=== PATIENT | male | born 1940 | race Caucasian/White ===

== ENCOUNTER 2017-03-03 11:41 | Inpatient (IN) | payer OTHER ==
[~2017-03-03] VITALS: Ht 188 cm; Wt 97.5 kg
[~2017-03-03 11:41] MED LIST: AMLODIPINE BESYL5 M1 PO; ANTACID ANTI-G355 ML PO; ASPIRIN EC325 M2 PO; DEPAKOTE250 M1 PO; DEPAKOTE500 M1 PO; DIVALPROEX SOD250 M3 PO; DIVALPROEX SOD500 M2 PO; FLUTICASONE PRO16 GM NASB; FUROSEMIDE40 M1 PO; LASIX20 M1 PO; OMEPRAZOLE40 M1 PO; PAIN RELIEF325 MG PO; SERTRALINE HCL100 MG PO; SERTRALINE HCL25 MG PO; SERTRALINE HCL50 MG PO; VITAMIN B-121000 MC3 PO
--- NOTE | 2017-03-03 11:49 | ED GENERAL ADULT ---
See Addendum History of Present Illness General Chief Complaint: Altered Mental Status Stated Complaint: CONFUSION Source: family, old records, EMS Exam Limitations: confusion Vital Signs & Intake/Output Vital Signs & Intake/Output Vital Signs Date Time Temp Pulse Resp B/P B/P Pulse O2 O2 Flow FiO2 Mean Ox Delivery Rate 03/05 0126 78 142/90 03/04 2211 97.7 64 20 144/100 95 Room Air 03/04 1347 98.2 86 20 140/80 98 Room Air 03/04 1154 Room Air 03/04 1114 Room Air 03/04 1043 74 150/90 03/04 0633 98.2 77 20 150/98 96 Room Air ED Intake and Output 03/05 0000 03/04 1200 Intake Total 2320 800 Output Total Balance 2320 800 Intake, IV 1600 800 Intake, Oral 720 Number 1 Bowel Movements Patient 215 lb Weight Allergies Coded Allergies: No Known Allergies (04/25/16) Reconcile Medications Amlodipine Besylate 5 MG TABLET 1 TAB PO QAM BP (Reported) Aspirin (Ecotrin*) 325 MG TABLET.DR 1 TAB PO DAILY HEART/BLOOD (Reported) Ceftriaxone Sodium (Ceftriaxone) 1 GRAM VIAL 1 GM IM DAILY ANTIBIOTIC, INFECTION (Reported) Cholecalciferol (Vitamin D3) 1,000 UNIT TABLET 1 TAB PO DAILY VITAMIN SUPPORT (Reported) Divalproex Sodium 500 MG TABLET.DR 1,500 MG PO QHS patient does not know the reas (Reported) Divalproex Sodium (Depakote) 250 MG TABLET.DR 1 TAB PO QHS patient does not remeber (Reported) as part of 1750 MG dose Fluticasone Propionate 16 GM SPRAY.SUSP 1 SPRAY NASB DAILY NASAL CONGESTION ( Reported) Furosemide (Lasix) 20 MG TABLET 1 TAB PO DAILY DIURETIC (Reported) Polyethylene Glycol 3350 (Miralax) 17 GRAM POWD.PACK 1 PAC PO DAILY CONSTIPATION (Reported) dissolve in water Sertraline HCl 25 MG TABLET 1 TAB PO DAILY MENTAL HEALTH (Reported) Sertraline HCl 50 MG TABLET 1 TAB PO DAILY MENTAL HEALTH (Reported) Sertraline HCl 100 MG TABLET 1 TAB PO DAILY MENTAL HEALTH (Reported) Triage Nurses Notes Reviewed? yes Onset: Gradual Duration: getting worse Timing: recent history Severity: severe Severity Numbers: 10 HPI: Patient is a 76-year-old male with a past medical history of progressive dementia, hypertension, atrial fibrillation (NOT ON ANTICOAGULATION, CHF, depression, anxiety, hyperlipidemia, autism and GERD in which history is limited due to patient's confusion where EMS brought inpatient from [facility] for concerns of altered mental status worsening confusion and lethargy. Family also is present in which the daughter is power of estate planning attorney who confirms that in the past month since symptoms was placed at [facility] patient has progressively worsen at his a slightly normal daily function. Daughter does state that last week patient was conversing at baseline and ambulating without assistance however in the past week patient's nonambulatory and generalized weak and fatigue and significantly confused. It was noted throat records the patient has a urine culture positive for gram-negative rods patient has received 1 day of intramuscular gram of Rocephin prior to arrival at [facility]. Family staff and EMS state that there is no acute onset of mental status changes or facial droop slurred speech or unilateral weakness (VALENTINO GOMEZ) Past History Travel History Traveled to [facility] past 21 day No Medical History Any Pertinent Medical History? 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 No (VALENTINO GOMEZ) Review of Systems Review of Systems Constitutional: Reports: see HPI, malaise, weakness. Denies: fever. EENTM: Reports: no symptoms. Respiratory: Reports: no symptoms. Cardiovascular: Reports: no symptoms. GI: Reports: no symptoms. Genitourinary: Reports: see HPI. Musculoskeletal: Reports: no symptoms. Skin: Reports: no symptoms. Neurological/Psychological: Reports: no symptoms. Hematologic/Endocrine: Reports: no symptoms. Immunologic/Allergic: Reports: no symptoms. All Other Systems: Reviewed and Negative (VALENTINO GOMEZ) Physical Exam Physical Exam General Appearance: no apparent distress, awake Head: atraumatic Eyes: Bilateral: normal appearance, PERRL, EOMI. Ears, Nose, Throat: hearing grossly normal Neck: normal inspection Respiratory: normal breath sounds, chest non-tender, no respiratory distress Cardiovascular: irregularly irregular Gastrointestinal: normal bowel sounds, soft, non-tender, no organomegaly Extremities: normal inspection, normal capillary refill Skin: intact, normal color Core Measures ACS in differential dx? No CVA/TIA Diagnosis: No NIH Stroke Scale: Total 3 Severe Sepsis Present: No Septic Shock Present: No Bedside Swallow Eval Done: Yes Result of Evaluation: Pass (VALENTINO GOMEZ) Progress Differential Diagnoses I considered the following diagnoses in my evaluation of the patient: [Sepsis, UTI, CVA, electrolyte abnormality, LORRIE, pneumonia,] Plan of Care: Orders Procedure Date/time Status DEPAKOTE LEVEL 03/08 0600 Active CBC WITHOUT DIFFERENTIAL 03/05 06 Active BASIC ELECTROLYTES PLUS BUN&CR 03/05 0600 Active Regular Diet 03/04 L Complete Regular Diet 03/04 D Active SWALLOW EVALUATION 03/04 UNK Active Evaluate Swallowing 03/04 UNK Complete Therapeutic Activities 03/04 UNK Complete PT EVAL LOW COMPLEX 20 MIN 03/04 UNK Complete Patient Safety Monitor 03/04 UNK Complete Nursing Misc 03/04 UNK Active Current Medications Sig/Gwen Start time Last Medication Dose Stop Time Status Admin Sertraline HCl 175 MG DAILY 03/05 1000 AC (Zoloft) Divalproex Sodium 1,750 MG AT BEDTIME 03/04 2345 AC 03/05 (Depakote ER) 0021 Amlodipine Besylate 5 MG QAM 03/04 1000 AC 03/04 (Norvasc) 1043 Aspirin Buffered 325 MG DAILY 03/04 1000 AC 03/04 (Ecotrin) 1043 Ceftriaxone Sodium 1,000 MG DAILY 03/04 1000 AC 03/04 (Rocephin) 1043 Bisacodyl 10 MG DAILY PRN 03/03 1600 AC (Dulcolax Supp) Acetaminophen 1,000 MG Q6P PRN 03/03 1545 AC (Ofirmev) Potassium Chloride 20 MEQ Q10H 03/03 1545 AC 03/04 (KCl 20MEQ in D5W NS 03/05 0744 1604 1000ML) Dextrose/Sodium 1,000 ML Chloride (D5-Normal Saline) Heparin Sodium 5,000 UNIT Q8 03/03 1543 AC 03/04 (Porcine) 2201 Laboratory Tests 03/04/17 0744: Anion Gap 8, Estimated GFR > 60, BUN/Creatinine Ratio 30.0 H, CBC w Diff NO MAN DIFF REQ, RBC 4.63 L, MCV 91.4, MCH 30.9, RDW 13.4, MPV 7.3 L, Gran % 79.1 H, Lymphocytes % 7.5 L, Monocytes % 12.2 H, Eosinophils % 1.2, Basophils % 0 L, Absolute Granulocytes 4.1, Absolute Lymphocytes 0.4 L, Absolute Monocytes 0.6, Absolute Eosinophils 0.1, Absolute Basophils 0, PUBS MCHC 33.8 Due to history of present noticing exam findings patient has consideration of altered mental status most likely due to urine tract infection. Culture does note of gram-negative rods Patient was given IV Rocephin which patient will require IV antibiotics. Patient also requires slow fluid resuscitation No concerns of CVA or TIA at this time patient follows all commands however he is oriented 0 Daughter states that patient is usually alert and oriented and has significantly declined in the past week No acute findings on imaging (MARTINEZ CRUZ,VALENTINO) Diagnostic Imaging: Viewed by Me: Radiology Read, CT Scan. Radiology Impression: no acute abnormality Initial ED EKG: AFIB (82 BPM) Comments: PATIENT: VALENTINO GOSS PRESENT AGE: 76 PATIENT ACCOUNT NO: [id number] : 38 LOCATION: [facility] ORDERING PHYSICIAN: VALENTINO CRUZ SERVICE DATE: 03/03/17-1253 EXAM TYPE: CAT - CT HEAD WO IV CONTRAST EXAMINATION: CT HEAD WITHOUT CONTRAST CLINICAL INFORMATION: Altered mental status. COMPARISON: CT scan of the head 04/25/2016. TECHNIQUE: Contiguous axial imaging was performed from the skull base to vertex without intravenous administration of contrast. DLP: 701.14 mGy-cm FINDINGS: There is no evidence of acute intracranial hemorrhage or territorial infarction. No abnormal mass effect or midline shift is seen. Adames to white matter differentiation is well preserved. There is mild prominence of the CSF in the multilevel cranial fossa on the left anteriorly, but there are vessels running through this fluid, and the findings are unlikely to be consistent with a cyst. The ventricles and sulci are commensurately prominent consistent with mild diffuse volume loss, similar compared to the prior study. There are patchy areas of low attenuation in the periventricular and subcortical white matter, consistent with sequelae of chronic microvascular ischemic disease. Lacunar infarcts are noted in the left basal ganglia and right thalamus, unchanged The osseous structures and soft tissues are normal. The mastoid air cells and visualized portions of the paranasal sinuses are well aerated. IMPRESSION: 1. There are no acute bleeds or territorial infarcts. 2. There are stable changes consistent with diffuse volume loss in the sequelae of chronic microvascular ischemic disease and lacunar infarcts. DICTATED BY: HECTOR MEYER MD PATIENT: VALENTINO GOSS PRESENT AGE: 76 PATIENT ACCOUNT NO: [id number] : 38 LOCATION: [facility] ORDERING PHYSICIAN: VALENTINO CRUZ SERVICE DATE: 03/03/17 EXAM TYPE: RAD - XRY-PORTABLE CHEST XRAY EXAMINATION: XR PORTABLE CHEST CLINICAL INFORMATION: Altered mental status. COMPARISON: Chest 04/25/2016. TECHNIQUE: Portable AP 75 degrees upright view of the chest was obtained. FINDINGS: There is stable mild enlargement of the cardiac silhouette, accentuated by hypoexpansion of the lungs. There is no congestion or focal consolidation. There is probable vascular crowding or minor atelectasis at the left lung base. There are stable mild degenerative changes of the spine. IMPRESSION: Mild left base atelectasis. Otherwise, no acute cardiopulmonary process. DICTATED BY: SASHA PEDRO MD DATE/TIME DICTATED:03/03/171341 MERCHANDISE EXECUTION LEADER:SADI (VALENTINO GOMEZ) Departure Departure Disposition: STILL A PATIENT Condition: Stable Clinical Impression Primary Impression: Altered mental state Secondary Impressions: UTI (urinary tract infection) Referrals: YARED TREVIZO MD (PCP/Family) Departure Forms: Customer Survey General Discharge Information Admission Note Spoke With: ALAYNA SANCHEZ MD Documentation of Exam: Documentation of any treatments & extenuating circumstances including Concerns Regarding Discharge (functional status, medication knowledge or non-compliance, living conditions, etc.) that warrant an admission rather than observation: [ Discussed admission with who agrees with general medicine admission for concerns of altered mental status etiology urine infection which patient requires IV antibiotics, IV fluid resuscitation, dietary consultation, physical therapy consultation, case management consultation and further evaluation and treatment of patient's significant baseline change of mental status.] (VALENTINO GOMEZ) PA/BOAT JOINER Co-Sign Statement Statement: ED Attending supervision documentation- [X] I saw and evaluated the patient. I have also reviewed all the pertinent lab results and diagnostic results. I agree with the findings and the plan of care as documented in the PA's/BOAT JOINER's documentation. [] I have reviewed the ED Record and agree with the PA's/BOAT JOINER's documentation. [] Additions or exceptions (if any) to the PAs/BOAT JOINER's note and plan are summarized below: [] (KIRAN REYNA,STUART Coyle) Critical Care Note Critical Care Note Critical Care Time: non-applicable (VALENTINO GOMEZ)
[2017-03-03] MEDS ORDERED: MIRALAX17 G1 PO (12:03)
[2017-03-03] MEDS ORDERED: VITAMIN D31000 UNI2 PO (12:06)
[2017-03-03] MEDS ORDERED: CEFTRIAXONE1 G1 IM (12:07)
[2017-03-03 12:28] LABS: ABSOLUTE BASOPHIL COUNT 0 /CUMM (0.0-0.2); ABSOLUTE EOSINOPHIL COUNT 0.1 /CUMM (0.0-0.7); ABSOLUTE MONOCYTE COUNT 0.7 /CUMM (0.10-0.60); EOSINOPHIL % 0.8 % (0-5); MEAN CORPUSCULAR HGB CONC 33.8 G/DL (33.0-37.0)
[2017-03-03 12:35] LABS: ABSOLUTE GRANULOCYTE CT 7.3 /CUMM (1.4-6.5); ABSOLUTE LYMPH COUNT 0.5 /CUMM (1.2-3.4); BASOPHIL % 0 % (0.0-2.0); HEMATOCRIT 42.5 % (42-52); MEAN CORPUSCULAR HGB 30.7 PG (27.0-31.0); MEAN CORPUSCULAR VOLUME 90.8 FL (80.0-94.0); MEAN PLATELET VOLUME 7.1 FL (7.4-10.4); PLATELET COUNT 132 /CUMM (130-400); RBC DISTRIBUTION WIDTH 13.5 % (11.5-14.5); RED BLOOD CELL CT 4.68 /CUMM (4.70-6.10)
[2017-03-03 12:40] LABS: WHITE BLOOD CELL COUNT 8.6 /CUMM (4.8-10.8)
[2017-03-03 12:49] LABS: GRANULOCYTE % 85.2 % (42.2-75.2)
--- NOTE | 2017-03-03 13:48 | RADIOLOGY REPORT ---
EXAMINATION: XR PORTABLE CHEST CLINICAL INFORMATION: Altered mental status. COMPARISON: Chest 04/25/2016. TECHNIQUE: Portable AP 75 degrees upright view of the chest was obtained. FINDINGS: There is stable mild enlargement of the cardiac silhouette, accentuated by hypoexpansion of the lungs. There is no congestion or focal consolidation. There is probable vascular crowding or minor atelectasis at the left lung base. There are stable mild degenerative changes of the spine. IMPRESSION: Mild left base atelectasis. Otherwise, no acute cardiopulmonary process.
--- NOTE | 2017-03-03 13:55 | CT SCAN REPORT ---
EXAMINATION: CT HEAD WITHOUT CONTRAST CLINICAL INFORMATION: Altered mental status. COMPARISON: CT scan of the head 04/25/2016. TECHNIQUE: Contiguous axial imaging was performed from the skull base to vertex without intravenous administration of contrast. DLP: 701.14 mGy-cm FINDINGS: There is no evidence of acute intracranial hemorrhage or territorial infarction. No abnormal mass effect or midline shift is seen. Adames to white matter differentiation is well preserved. There is mild prominence of the CSF in the multilevel cranial fossa on the left anteriorly, but there are vessels running through this fluid, and the findings are unlikely to be consistent with a cyst. The ventricles and sulci are commensurately prominent consistent with mild diffuse volume loss, similar compared to the prior study. There are patchy areas of low attenuation in the periventricular and subcortical white matter, consistent with sequelae of chronic microvascular ischemic disease. Lacunar infarcts are noted in the left basal ganglia and right thalamus, unchanged The osseous structures and soft tissues are normal. The mastoid air cells and visualized portions of the paranasal sinuses are well aerated. IMPRESSION: 1. There are no acute bleeds or territorial infarcts. 2. There are stable changes consistent with diffuse volume loss in the sequelae of chronic microvascular ischemic disease and lacunar infarcts.
--- NOTE | 2017-03-03 14:17 | History & Physical ---
ARABELLA REYNA,ROBERTA 03/03/17 1417: General Information and HPI MD Statement: I have seen and personally examined VALENTINO GOSS and documented this H&P. The patient is a 76 year old M who was sent to the ED for abnormal lab results and altered mental status. Source of Information: family, daughter, who is the POA Exam Limitations: clinical condition, dementia History of Present Illness: 76 yo M with past medical condition of dementia, autism, CVA (last one 15 yrs ago), HTN, CHF, afib not on AC due to fall risk, HLD, edema, GRED, depression, anxiety, was sent in by nursing facility for abnormal lab values and altered mental status. According to the patient's family, he was in some rehab facility one month ago when he started having urinary and fecal incontinence, following which he was sent to [facility]. At baseline, his can communicate and can walk with the help of a walker. Family reported that he was probably the facility was unable to give personal care that he required and the family was not informed of his detoriating mental status until the daughter visited him 2 days [place]AM[place]. She noticed that he was only able to recognize family members but was below his baseline mental status, not recognizing food or drinnk, and had "cognitive" changes. Appearantly, patient was tested for infection and was found to have UTI, was given a dose of IM Ceftriaxone. Per family's request due to latered mental status, he was refered to [facility]. Review of systems could not be obtained as there was no one to verify his status in the facility, and the patient was unable to provide history. Allergies/Medications Allergies: Coded Allergies: No Known Allergies (04/25/16) Home Med list Amlodipine Besylate 5 MG TABLET 1 TAB PO QAM BP (Reported) Aspirin (Ecotrin*) 325 MG TABLET. 1 TAB PO DAILY HEART/BLOOD (Reported) Ceftriaxone Sodium (Ceftriaxone) 1 GRAM VIAL 1 GM IM DAILY ANTIBIOTIC, INFECTION (Reported) Cholecalciferol (Vitamin D3) 1,000 UNIT TABLET 1 TAB PO DAILY VITAMIN SUPPORT (Reported) Divalproex Sodium 500 MG TABLET. 1,500 MG PO QHS patient does not know the reas (Reported) Divalproex Sodium (Depakote) 250 MG TABLET. 1 TAB PO QHS patient does not remeber (Reported) as part of 1750 MG dose Fluticasone Propionate 16 GM SPRAY.SUSP 1 SPRAY NASB DAILY NASAL CONGESTION ( Reported) Furosemide (Lasix) 20 MG TABLET 1 TAB PO DAILY DIURETIC (Reported) Polyethylene Glycol 3350 (Miralax) 17 GRAM POWD.PACK 1 PAC PO DAILY CONSTIPATION (Reported) dissolve in water Sertraline HCl 25 MG TABLET 1 TAB PO DAILY MENTAL HEALTH (Reported) Sertraline HCl 50 MG TABLET 1 TAB PO DAILY MENTAL HEALTH (Reported) Sertraline HCl 100 MG TABLET 1 TAB PO DAILY MENTAL HEALTH (Reported) Past History Travel History Traveled to [place] past 21 day No Medical History Neurological: CVA, ?EARLY DEMENTIA AUTISM SPECTRUM DISORDER ?ANOXIC BRAIN INJURY EENT: hearing loss Cardiovascular: AFIB, hypertension, DEPENDENT EDEMA Respiratory: NONE Gastrointestinal: GERD Hepatic: NONE Renal: NONE Musculoskeletal: Bilateral KNEE trauma and tendon injury RIB FX Psychiatric: AUSTISM SPECTRUM, OCD (her daughter denied these in front of the patient, according to her patient does not want to know about this as it will affects his vision about his life) Endocrine: NONE Blood Disorders: NONE Cancer(s): NONE 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 Other ([place]) Who Do You Live With? self Services at Home: Nursing, Physical Therapy Primary Language: Vietnamese ETOH Use: denies use Illicit Drug Use: denies illicit drug use Power of Compo Caster/HCP? Daughter is 1st, and son-in-law is 2nd if daughter is not available Functional Ability ADLs Needs Assist: dressing, eating, toileting, bathing. Ambulation: walker IADLs Needs Assist: shopping, housework, finances, food prep, telephone, transportation, medication admin. Review of Systems Review of Systems Constitutional: Reports: see HPI (unable to obtain). EENTM: Reports: no symptoms. Cardiovascular: Reports: no symptoms. Denies: chest pain (response from patient). Respiratory: Reports: no symptoms. GI: Reports: no symptoms. Genitourinary: Reports: no symptoms. Musculoskeletal: Reports: no symptoms. Skin: Reports: no symptoms. Neurological/Psychological: Reports: confusion. Hematologic/Endocrine: Reports: no symptoms. All Other Systems: Reviewed and Negative Exam & Diagnostic Data Last 24 Hrs of Vital Signs/I&O Vital Signs Date Time Temp Pulse Resp B/P B/P Pulse O2 O2 Flow FiO2 Mean Ox Delivery Rate 03/03 2221 97.8 73 18 130/70 97 03/03 1616 96 Room Air 03/03 1607 97.6 73 20 132/89 95 Room Air 03/03 1343 97.7 72 20 143/84 97 Room Air 03/03 1215 97 Room Air 03/03 1146 97.3 79 20 120/73 96 Room Air Intake & Output 03/03 1600 03/03 0800 03/03 0000 Intake Total 1000 Output Total Balance 1000 Intake, IV 1000 Patient 97.522 kg Weight Weight Estimated Measurement Method Physical Exam General Appearance Alert, Cooperative, No Acute Distress, disoriented Skin No Rashes, No Breakdown, No Significant Lesion Skin Temp/Moisture Exam: Warm/Dry Sepsis Skin Exam (color): Normal for Ethnicity HEENT Atraumatic, PERRLA, dry mucosa Neck Supple, No JVD Lymphatic Cervical nl Cardiovascular No Murmurs, irregular rate Lungs Clear to Auscultation, Normal Air Movement, basal crackles heard Abdomen Normal Bowel Sounds, Soft, No Tenderness, no CVA tenderness Neurological Normal Speech, Strength at 5/5 X4 Ext, Normal Tone, Cranial Nerves 3-12 NL, Reflexes 2+, unable to assess higher mental functions due to patient's condition, sensation unable to assess due to patient's condition, patient unable to give feedback, but follows instructions, so motor functions examined, but not the sensory components, Patient passed bedside swallow screening done by me. Notified resident as well. Extremities No Clubbing, No Cyanosis, No Edema, Normal Pulses, No Tenderness/ Swelling Vascular Normal Pulses, Pulses Symmetrical Sepsis Peripheral Pulse Location: Radial Sepsis Peripheral Pulse Exam: Normal Sepsis Cap Refill Exam: <2 Sec Last 24 Hrs of Labs/Bala: Laboratory Tests 03/03/17 1200: Anion Gap 6, Estimated GFR > 60, BUN/Creatinine Ratio 26.7 H, Glucose 103 H, Lactic Acid 1.2, Calcium 9.5, Magnesium 1.7, Total Bilirubin 0.4, AST 11 L, ALT 21, Alkaline Phosphatase 51, Total Protein 5.1 L, Albumin 2.8 L, Globulin 2.3, Albumin/Globulin Ratio 1.2, CBC w Diff NO MAN DIFF REQ, RBC 4.68 L, MCV 90.8, MCH 30.7, RDW 13.5, MPV 7.1 L, Gran % 85.2 H, Lymphocytes % 5.4 L, Monocytes % 8.6, Eosinophils % 0.8, Basophils % 0 L, Absolute Granulocytes 7.3 H, Absolute Lymphocytes 0.5 L, Absolute Monocytes 0.7 H, Absolute Eosinophils 0.1 , Absolute Basophils 0, PUBS MCHC 33.8 03/03/17 1150: Urine Color ADAM, Urine Clarity HAZY H, Urine pH 6.0, Ur Specific Bowdle 1.020, Urine Protein 30 H, Urine Ketones NEG, Urine Nitrite NEG, Urine Bilirubin NEG@ICTO, Urine Urobilinogen 2.0 H, Ur Leukocyte Esterase MOD H, Ur Microscopic SEDIMENT EXAMINED, Urine RBC >75 H, Urine WBC 25-50 H, Ur Epithelial Cells FEW, Urine Bacteria RARE H, Hyaline Casts FEW H, Urine Mucus FEW, Urine Hemoglobin LARGE H, Urine Glucose NEG Microbiology 03/03 1215 BLOOD: Blood Culture - RECD 03/03 1200 BLOOD: Blood Culture - RECD Diagnostic Data EKG Results afib, rate 82, LAD, left anterior fascicular block, no ST-T cahnges, no prior EKG to compare with. CXR Results Mild left base atelectasis. Otherwise, no acute cardiopulmonary process. DICTATED BY: SASHA PEDRO MD DATE/TIME DICTATED:03/03/171341 MONUMENT INSTALLER:SADI DATE/TIME TRANSCRIBED:03/03/171341 Other Results CT Head: IMPRESSION: 1. There are no acute bleeds or territorial infarcts. 2. There are stable changes consistent with diffuse volume loss in the sequelae of chronic microvascular ischemic disease and lacunar infarcts. DICTATED BY: HECTOR MEYER MD DATE/TIME DICTATED:03/03/171348 MONUMENT INSTALLER:SADI DATE/TIME TRANSCRIBED:03/03/171348 Assessment/Plan Assessment: 76 yo M with past medical condition of dementia, autism, CVA (last one 15 yrs ago), HTN, CHF, afib not on AC due to fall risk, HLD, edema, GRED, depression, anxiety, was sent in by nursing facility for abnormal lab values and altered mental status. He is currently being admitted to the general medical floor for the following issues: #Altered mental status, 2/2 UTI His mental condition is likely due to UTI, as his WBC was 19.2 with bandemia of 7 on 03/02/17, with UA showing WBC 25-50, rare bacteria, mod leukocyte esterase. His urine culture is already growing Gran Negative Rods today. He received 1 dose of IM abx already and seems to have responded as his WBC today is 8.6 with no band cells. Will continue with IV Ceftriaxone for now, pending culture reports. Bladder scan ordered to check if he has significant residual volume. -Other causes of AMS is also being considered, including metabloic, pharmacologic, infection/sepsis. Malnutrition, deconditioning, neglect can have a significant role as well. -Avoid sedative/hypnotics/narcotics. -Patient might benefit from geriatric evaluation but this can be done as an outpatient, as the patient is still not in his baseline. If necessary, will call for Psych service consultation. Family also requests a geriatric evaluation at some point, which was explained that it could be done as an out patient. #Dehydration His BUN/Cr ratio is high 26.7 suggesting dehydration. Will continue IV fluids for now with dextrose and potassium supplement. Formal swallow eval has been ordered for tomorrow, and will advance his diet accordingly. As he will be on aspiration precaution precaution until then. #Malnutrition His albumin is 2.8, suggestive of malnutrition although his BMI is 27.6, along the fact that his oral intake has been poor recently. #H/o frequent falls He was admitted for fall injury last year in and the last fall was 6 months back. He has frequent falls per family members, which warranted him NOT to be on any anticoagulation for afib. -PT eval and treatment in AM #Diet: NPO for now, pending swallow eval in AM #DVT ppx: Heparin SQ given his renal condition #Code status: Full code As Ranked By This Provider Problem List: 1. Altered mental state 2. UTI (urinary tract infection) 3. Atrial fibrillation 4. Malnutrition 5. Dehydration Core Measures/Miscellaneous Acute Coronary Syndrome ACS Diagnosis: No Cerebrovascular Accident CVA/TIA Diagnosis: No Congestive Heart Failure CHF Diagnosis: No VTE (View Protocol) VTE Risk Factors: Age > [address] [facility] prophylaxis d/t: No contraindications No VTE Pharm Prophylaxis d/t: No contraindications VTE Diagnosis: No VTE Type: NONE VTE Confirmed by (Test): NONE Sepsis (View Protocol) Severe Sepsis Present: No Septic Shock Septic Shock Present: No Miscellaneous Documentation Attending Case Discussed With: EBONY GONZALEZ MD Primary Care Physician: YARED TREVIZO MD Patient sees these Specialists Internal Medicine Level of Patient Care: General Medicine TARIQ LARA 03/03/17 1518: Resident Review Statement Resident Statement: examined this patient, discussed with process engineering intern, agreed with process engineering intern, discussed with family, reviewed EMR data (avail), discussed with nursing , discussed with case mgmt, reviewed images, amended to note Other Findings: 75-year-old man, resident of [facility],BIBA for altered mental status and increased confusion. According to patient's daughter, patient was placed to [place] [facility]. According to daughter by the time patient was ambulating independently using a walker and he was communicative and verbal. About 2 weeks ago patient was transferred from acute rehabilitation department to extended care facility within [facility]. Ever since, daughter noticed a rapid decline in his mental and physical capacity. Patient progressively weekend and became bedbound, daughter found him confused, delirious, difficulty finding words and communicate, poor oral intake and significant weight loss and developing bowel and bladder incontinence. Over the past 2 days the decline in his mental and physical capacity was significant to the extent that concerns her daughter. He had a blood work done yesterday at [place] which showed significant leukocytosis with left shift and bandemia. Urine analysis and urine culture was sent which showed gram-negative rods and final antibiotic sensitivity is pending. Patient was given IM Rocephin. Repeat blood work from today showed improved leukocytosis but patient remained weak and confused. Per daughter's request patient was transferred to [facility] for further evaluation and placement in a new facility. of note, past medical history significant for hypertension, chronic atrial fibrillation not on rate control medication or anticoagulation, autism with impulsive behaviour, chronic venous stasis, GERD, tendency to fall and gait instability. Review of system: Patient is confused and delirious. Vital signs are stable; physical exam: Confused and delirious; HEET: Dry mucous membranes, lungs: Bibasilar faint crackle decrease her movements, heart: Irregularly irregular S1- S2 no murmur; abdomen: Obese, soft, nontender no CVA tenderness. Extremities: Trace bilateral lower extremities edema. Pertinent findings: Urine culture: Gram-negative rods final antibiotic sensitivity results are pending 2 sets of blood cultures are pending WBC 8.6 no left shift no bandemia, hemoglobin and hematocrits: 14.4/42.5, sodium 135, potassium 3.3, carbon dioxide 31, BUN 24 creatinine 0.9 BUN/creatinine ratio 26.7, total protein 5.1 albumin 2.8. EKG: Atrial fibrillation, controlled rate, left axis deviation and narrow QRS complex left anterior fascicular block, no ST-T wave change Assessment 76-year-old gentleman was admitted for altered mental status was possibly due to urinary tract infection with components of chronic malnutrition. List of active problems #1 decline in cognitive capacity in an elderly patient: Common causes of confusion in elderly patients are infection, polypharmacy(narcotics and hypnotics), dehydration, and psychiatric causes such as isolation and depression. According to Valentino presentation, there are components of neglect, malnutrition, and most importantly urinary tract infection that contributed to his altered mental status. * Admit to general medical floor * Nothing by mouth for tonight * Aspiration precaution * D5 normal saline 100 mL per hour +20 mEq of potassium * 2 runs of potassium chloride 10 mEq IV * Ceftriaxone 1000 mg IV daily * Follow microbiology results; blood cultures and final urine culture sensitivity results * Repeat blood work in the a.m. CBC, BEP * Avoid hypnotics and narcotics medication in this patient * obtain geriatric/psych evaluation #2 malnutrition: Decreased total protein and decreased albumin mean. * Placed nutrition consult #3 gait instability and frequent falls and progressive weakness * PT eval * Discharged to short-term rehabilitation and placement to another extended care facility #4 worsening hypercapnia: possibly due to obesity hypoventilation syndrome. Chest x-ray is hypoinflated. #5 dehydration with elevated BUN/creatinine ratio and clinical findings. * Continue gentle IV hydration with normal saline and D5 100 mL per hour * Repeat BEP in the a.m. FC Heparin SC 5000U Q8h pain management EBONY GONZALEZ MD 03/03/17 2010: Attending MD Review Statement Attending Statement Attending MD Statement: examined this patient, discuss w/resident/PA/HEALTH CENTER MANAGER, agreed w/resident/PA/HEALTH CENTER MANAGER, discussed with family, reviewed EMR data (avail), reviewed images, amended to note Attending Assessment/Plan: The patient is a 75 yo male with h/o dementia, HTN, atrial fibrillation (not on anticoagulation due to falls), depression, anxiety, hyperlipidemia, GERD, and ? autism who is a patient now at [facility] who was brought to hospital with several days of decline in mental status and responsiveness and decreased po intake. Had an abnormal urinalysis and received 1 dose of IM Ceftriaxone yesterday. He had no fever, chills, pain, nausea, vomiting, dyspnea or chest pain. He did have an elevated WBC which has normalized today in ED. Daughter wished him to come to hospital for IV fluids, antibiotics and further evaluation. Wishes to consider placing in another SNF that is closer to where she lives in [place]. Physical Exam: VS: T 97.3, P 79, R 20, BP 120/73, PO 96% HEENT: eyes- PERRLA, EOMI barbara- dry mucosa Neck: no JVD or adenopathy, - bruits Chest: decreased BS at bases, otherwise clear Cor: irreg, normal rate, nl S1, S2 w/o murm Abd: BS+, soft, NT Ext: trace edema bilat, pulses 2+ Neuro: alert, oriented to person not place or time, speech is slow and deliberate, neuro exam is otherwise non-focal, moves all extremities Labs/Tests: as above Impression/Plan: #Urinary Tract Infection- no h/o UTIs per daughter. Did have elevated WBC yesterday at SNF, however no normalized. No fever, chills, etc. Is symptomatic based on diminished po intake and volume depletion. Plan: Admit to general medicine. Await final urine culture (currently > 100,000 GNR) Ceftriaxone 1 g q24 hr pending culture Check post void residual (bladder scan post voiding). #Altered Mental Status- patient is with underlying dementia and ?autism, however daughter states he has been more lethargic and decreased responsiveness. Possible toxic metabolic encephalopathy. Plan: Will follow mental status with hydration and antibiotics. Daughter wishes Geriatric consult, however was advised this is not available in hospital. Will have psych evaluate as he is on mood disorder meds (Sertraline/ Divalproex) #Volume Depletion- due to poor po intake and Lasix. Plan: IV hydration begun. Hold Furosemide at present and follow I/O's. #Atrial Fibrillation- rate is controlled. Not on anticoagulation due to falls/ risk. Plan: Will follow pulse rate. Continue ASA. #HTN- BP god at prsent. Plan: Continue Amlodipine. #Social- as above, patient's daughter wishes to have him moved to STR closer to her in [place]. Plan: Case management to consult.
--- NOTE | 2017-03-03 20:11 | Admission Certification ---
Admission Certification Certification Statement - As attending physician, I certify that at the time of - admission, based on clinical presentation, severity of - symptoms, need for further diagnostic testing and - therapeutic interventions, and risk of adverse outcomes - without in-hospital treatment, in my clinical assessment, - this patient requires an acute hospital stay for a minimum - of two nights or longer. I have also considered psychsocial - factors such as support system, advanced age, financial - issues, cognitive issues, and failed out-patient treatments, - past re-admission history, safety of patient, and lack of - compliance as applicable. Specific rationale supporting this admission is: The patient presents with altered mental status, difficulty taking po, weakness and UTI with GNR on initial culture. Needs admission for IV hydration, physical therapy, IV antibiotics (Ceftriaxone initially).
[2017-03-03 22:21] VITALS: BP 130/70
[2017-03-04 06:33] VITALS: BP 150/98
--- NOTE | 2017-03-04 07:14 | PN- Housestaff ---
ARABELLA REYNA,ROBERTA 03/04/17 0714: Subjective Follow-up For: Altered mental status Complaints: pt unable to provide hx Subjective: I followed up and examined the patient today. He is resting comfortably in the bed, not in distress, and does not offer any complaints. His vitals have been stable, overnight he was not agitated, and no other issues reported by the overnight team. This morning by my resident was following up on the patient, he was at the edge of his bed, confused, and safety monitor was ordered. Dictated during the day, the patient appears more oriented, responsive, and is resting comfortably in his recliner, his daughter by the side, and does not have a 1:1 sitter or a security monitor. Review of Systems Constitutional: Reports: no symptoms. Objective Last 24 Hrs of Vital Signs/I&O Vital Signs Date Time Temp Pulse Resp B/P B/P Pulse O2 O2 Flow FiO2 Mean Ox Delivery Rate 03/04 1347 98.2 86 20 140/80 98 Room Air 03/04 1154 Room Air 03/04 1114 Room Air 03/04 1043 74 150/90 03/04 0633 98.2 77 20 150/98 96 Room Air 03/03 2221 97.8 73 18 130/70 97 03/03 1616 96 Room Air 03/03 1607 97.6 73 20 132/89 95 Room Air Intake & Output 03/04 1600 03/04 0800 03/04 0000 Intake Total 1280 800 400 Output Total Balance 1280 800 400 Intake, IV 800 800 400 Intake, Oral 480 0 Number 1 1 Bowel Movements Patient 97.522 kg 97.522 kg Weight Physical Exam General Appearance: Alert, Cooperative, No Acute Distress Other Physical Findings: Skin No Rashes, No Breakdown, No Significant Lesion Skin Temp/Moisture Exam: Warm/Dry HEENT Atraumatic, PERRLA, dry mucosa Neck Supple, No JVD Lymphatic Cervical nl Cardiovascular No Murmurs, irregular rate Lungs Clear to Auscultation, Normal Air Movement, basal crackles heard Abdomen Normal Bowel Sounds, Soft, No Tenderness, no CVA tenderness Neurological Normal Speech, Strength at 5/5 X4 Ext, Normal Tone, Cranial Nerves 3-12 NL, Reflexes 2+, unable to assess higher mental functions due to patient's condition, sensation unable to assess due to patient's condition, patient unable to give feedback, but follows instructions, so motor functions examined, but not the sensory components. Patient is more lively and responsive today. Extremities No Clubbing, No Cyanosis, No Edema, Normal Pulses, No Tenderness/ Swelling Vascular Normal Pulses, Pulses Symmetrical Current Medications: Current Medications Sig/Gwen Start time Last Medication Dose Route Stop Time Status Admin Acetaminophen 1,000 MG Q6P PRN 03/03 1545 AC IV Amlodipine Besylate 5 MG QAM 03/04 1000 AC 03/04 PO 1043 Aspirin Buffered 325 MG DAILY 03/04 1000 AC 03/04 PO 1043 Bisacodyl 10 MG DAILY PRN 03/[address] Ceftriaxone Sodium 1,000 MG DAILY 03/04 1000 AC 03/04 IV 1043 Heparin Sodium 5,000 UNIT Q8 03/03 1543 AC 03/04 (Porcine) SC 1417 Patient Medication 1 ED .STK-MED ONE 03/04 1417 DC Teaching ED 03/04 1418 Potassium Chloride 10 MEQ Q1H 03/03 1545 DC 03/03 IV 03/03 1646 2226 Potassium Chloride 20 MEQ Q10H 03/03 1545 AC 03/04 Dextrose/Sodium 1,000 ML IV 03/05 0744 0646 Chloride Potassium Chloride 20 MEQ Q10H 03/03 1515 DC Dextrose/Water 1,000 ML IV Last 24 Hrs of Lab/Bala Results Last 24 Hrs of Labs/Mics: Laboratory Tests 03/04/17 0744: Anion Gap 8, Estimated GFR > 60, BUN/Creatinine Ratio 30.0 H, CBC w Diff NO MAN DIFF REQ, RBC 4.63 L, MCV 91.4, MCH 30.9, RDW 13.4, MPV 7.3 L, Gran % 79.1 H, Lymphocytes % 7.5 L, Monocytes % 12.2 H, Eosinophils % 1.2, Basophils % 0 L, Absolute Granulocytes 4.1, Absolute Lymphocytes 0.4 L, Absolute Monocytes 0.6, Absolute Eosinophils 0.1, Absolute Basophils 0, PUBS MCHC 33.8 Assessment/Plan Assessment: 76 yo M with past medical condition of dementia, autism, CVA (last one 15 yrs ago), HTN, CHF, afib not on AC due to fall risk, HLD, edema, GRED, depression, anxiety, was sent in by nursing facility for abnormal lab values and altered mental status. He is currently being managed in the general medical floor for the following issues: #Altered mental status, 2/2 UTI His mental condition is likely due to UTI, as his WBC was 19.2 with bandemia of 7 on 03/02/17, with UA showing WBC 25-50, rare bacteria, mod leukocyte esterase. His urine culture is already growing Gran Negative Rods today. He received 1 dose of IM abx already and seems to have responded as his WBC today is 8.6 with no band cells. -Will continue with IV Ceftriaxone for now, pending culture reports. Bladder scan did not reveal any residual volume. -Other causes of AMS can also being considered, including metabloic, pharmacologic, infection/sepsis. Malnutrition, deconditioning, neglect can have a significant role as well. -Avoid sedative/hypnotics/narcotics. -Psychiatric evaluation to be done today for his chronic psychiatric issues and the medications to order accordingly. Currently, holding his Depakote and similar psych meds. Will forllow Psych recs. #Dehydration His BUN/Cr ratio is high 26.7 suggesting dehydration. Will continue IV fluids for now with dextrose and potassium supplement. Formal swallow eval this AM suggested puree and nectar thick diet. As he will be on aspiration precautions until then. #Malnutrition His albumin is 2.8, suggestive of malnutrition although his BMI is 27.6, along the fact that his oral intake has been poor recently. Will consider Nutrition consult as his mentation improves. #H/o frequent falls He was admitted for fall injury last year in and the last fall was 6 months back. He has frequent falls per family members, which warranted him NOT to be on any anticoagulation for afib. -PT eval and treatment in AM #Diet: NPO for now, pending swallow eval in AM #DVT ppx: Heparin SQ given his renal condition #Code status: Full code Problem List: 1. Altered mental state 2. UTI (urinary tract infection) 3. Malnutrition 4. Dehydration 5. Atrial fibrillation Pain Ratin Pain Location: - Pain Goal: Pain 4 or less Pain Plan: prn Tomorrow's Labs & Rationales: EBNOY Coronel MD 03/04/17 2103: Attending Review Statement Attending Statement Attending Statement: examined this patient, discuss w/resident/PA/DICTATING MACHINE TRANSCRIBER, agreed w/resident/PA/DICTATING MACHINE TRANSCRIBER, discussed with family, reviewed EMR data (avail), discussed with nursing, discussed with case mgmt, amended to note Attending Assessment/Plan: The patient was seen and discussed with house staff. Agree with plan of care as outlined. Urine growing Klebsiella. Patient appears more alert. Appreciate psychiatry input. Continue IV fluids today and obtain PT consult. Family wishes to place in SNF closer to his daughter in [place].
[2017-03-04 08:32] LABS: ABSOLUTE BASOPHIL COUNT 0 /CUMM (0.0-0.2); ABSOLUTE EOSINOPHIL COUNT 0.1 /CUMM (0.0-0.7); ABSOLUTE GRANULOCYTE CT 4.1 /CUMM (1.4-6.5); ABSOLUTE LYMPH COUNT 0.4 /CUMM (1.2-3.4); ABSOLUTE MONOCYTE COUNT 0.6 /CUMM (0.10-0.60); BASOPHIL % 0 % (0.0-2.0); EOSINOPHIL % 1.2 % (0-5); GRANULOCYTE % 79.1 % (42.2-75.2); HEMATOCRIT 42.3 % (42-52); MEAN CORPUSCULAR HGB 30.9 PG (27.0-31.0); MEAN CORPUSCULAR HGB CONC 33.8 G/DL (33.0-37.0); MEAN CORPUSCULAR VOLUME 91.4 FL (80.0-94.0); MEAN PLATELET VOLUME 7.3 FL (7.4-10.4); PLATELET COUNT 121 /CUMM (130-400); RBC DISTRIBUTION WIDTH 13.4 % (11.5-14.5); RED BLOOD CELL CT 4.63 /CUMM (4.70-6.10); WHITE BLOOD CELL COUNT 5.2 /CUMM (4.8-10.8)
[2017-03-04 13:47] VITALS: BP 140/80
--- NOTE | 2017-03-04 16:25 | Discharge Summary ---
Visit Information Visit Dates Admission Date: 03/03/17 Discharge Date: 03/10/2017 Hospital Course Course Attending Physician: EBONY GONZALEZ MD Primary Care Physician: JOSELINE REYNA,[facility] Course: This is 75-year-old man, resident of [facility] for altered mental status and increased confusion. According to patient's daughter, patient was placed to [facility]. According to daughter by the time patient was ambulating independently using a walker and he was communicative and verbal. About 2 weeks ago patient was transferred from acute rehabilitation department to extended care facility within [facility]. Ever since, daughter noticed a rapid decline in his mental and physical capacity. Over the past 2 days the decline in his mental and physical capacity was significant to the extent that concerns her daughter. He had a blood work done on the day prior to admission at [place], which showed significant leukocytosis with left shift and bandemia. Urine analysis and urine culture, by that time, showed gram-negative rods and patient was startd on IM Rocephin. Repeat blood work on the day of hospitalization, showed improvement in leukocytosis, however, patient remained weak and confused. Per daughter's request patient was transferred to [facility] for further evaluation. Daughter wishes to consider placing in another SNF that is closer to where she lives in [place]. LABS Head CT scan in the ED departement showed " There are no acute bleeds or territorial infarcts ,2) there are stable changes consistent with diffuse volume loss in the sequelae of chronic microvascular ischemic disease and lacunar infarcts." Other lab values on the admission were WBC 8.6 no left shift no bandemia, hemoglobin and hematocrits: 14.4/42.5, sodium 135, potassium 3.3, carbon dioxide 31, BUN 24 creatinine 0.9 BUN/creatinine ratio 26.7, total protein 5.1 albumin 2.8. EKG: Atrial fibrillation WBC 8.6 no left shift no bandemia, hemoglobin and hematocrits: 14.4/42.5, sodium 135, potassium 3.3, carbon dioxide 31, BUN 24 creatinine 0.9 BUN/creatinine ratio 26.7, total prot 5.1 albumin 2.8. PATIENT WAS SEEN FOR THE FOLLOWING PROBLEMS: #1 AMS and UTI: After assessing the patient and his lab findings, medical team concluded that the picture on altered mental status and delirious in this gentelman is most likely multifactorial and associated with combination of acute urinary tract infection with elements of dehydraion, and malnutritrion (evident by low T. protein and Alb).For these causes patient was continued to be treated with IV cefteriaxone. Urine Cx final results showed KLEBSIELLA PNEUMONIAE, which was sensitive to Cefazoline. Per familly's resquest we obtained a ECHO without any indication of any active cardiac issues. * Completed 7 day course of antibiotics. #2 malnutrition: patient got nutrition consult. During his stay in patient was able to feed himself. * Cont' heart healthy chopped mechanical diet #3 gait instability and frequent falls and progressive weakness. Assessed by PT. * PT recommended physical therapy and STR. #4 HTN: Pt had BP up to 180 systolic during admission. We titrated BP meds accordingly * Increased Amlodipine from 5mg to 10mg * Con't 20mg Lasix FULL CODE CHOPPED DIET HEART HEALTHY Allergies: Coded Allergies: No Known Allergies (04/25/16) Pertinent Lab Results: Laboratory Tests 03/08 0642 Chemistry Sodium (137 - 145 mmol/L) 137 Potassium (3.5 - 5.1 mmol/L) 4.2 Chloride (98 - 107 mmol/L) 99 Carbon Dioxide (22 - 30 mmol/L) 31 H Anion Gap (5 - 16) 7 BUN (9 - 20 mg/dL) 16 Creatinine (0.7 - 1.2 mg/dL) 0.9 Estimated GFR (>60 ml/min) > 60 BUN/Creatinine Ratio (7 - 25 %) 17.8 Magnesium (1.6 - 2.3 mg/dL) 1.9 Hematology CBC w Diff NO MAN DIFF REQ WBC (4.8 - 10.8 /CUMM) 8.9 RBC (4.70 - 6.10 /CUMM) 4.69 L Hgb (14.0 - 18.0 G/DL) 14.5 Hct (42 - 52 %) 42.7 MCV (80.0 - 94.0 FL) 91.2 MCH (27.0 - 31.0 PG) 31.0 RDW (11.5 - 14.5 %) 13.9 Plt Count (130 - 400 /CUMM) 139 MPV (7.4 - 10.4 FL) 7.3 L Gran % (42.2 - 75.2 %) 64.4 Lymphocytes % (20.5 - 51.1 %) 15.8 L Monocytes % (1.7 - 9.3 %) 17.7 H Eosinophils % (0 - 5 %) 1.9 Basophils % (0.0 - 2.0 %) 0.2 Absolute Granulocytes (1.4 - 6.5 /CUMM) 5.7 Absolute Lymphocytes (1.2 - 3.4 /CUMM) 1.4 Absolute Monocytes (0.10 - 0.60 /CUMM) 1.6 H Absolute Eosinophils (0.0 - 0.7 /CUMM) 0.2 Absolute Basophils (0.0 - 0.2 /CUMM) 0 PUBS MCHC (33.0 - 37.0 G/DL) 34.0 Toxicology Valproic Acid (50 - 120 ug/mL) 85.1 Disposition Summary Disposition Principal Diagnosis: UTI Additional Diagnosis: HTN Discharge Disposition: SNF Discharge Instructions General Discharge Information Code Status: Full Code Patient's Diet: CHOPPED heart healthy Patient's Activity: as tolerated Follow-Up Instructions/Appts: see above Medications at Discharge Discharge Medications: Stop taking the following medications: Amlodipine Besylate (Amlodipine Besylate) 5 MG TABLET ORAL Every Morning Qty = 28 Ceftriaxone Sodium (Ceftriaxone) 1 GRAM VIAL INTRAMUSC DAILY Continue taking these medications: Sertraline HCl (Sertraline HCl) 25 MG TABLET 1 Tablet ORAL DAILY Qty = 28 Comments: Last Taken: 03/10/17 Time: 10:00 AM 175MG DOSE Sertraline HCl (Sertraline HCl) 50 MG TABLET 1 Tablet ORAL DAILY Qty = 28 Comments: Last Taken: 03/10/17 Time: 10:00 AM 175MG DOSE Sertraline HCl (Sertraline HCl) 100 MG TABLET 1 Tablet ORAL DAILY Qty = 28 Comments: Last Taken: 03/10/17 Time: 10:00 AM 175 MG Divalproex Sodium (Divalproex Sodium) 500 MG TABLET. 1,500 Milligram ORAL TAKE AT BEDTIME Qty = 84 Comments: Last Taken: 03/09/17 Time: 10:00 PM Furosemide (Lasix) 20 MG TABLET 1 Tablet ORAL DAILY Comments: Last Taken: 03/10/17 Time: 8:00 AM Fluticasone Propionate (Fluticasone Propionate) 16 GM SPRAY.SUSP 1 [place] Both sides of nose DAILY Qty = 16 Comments: NOT TAKEN IN HOSPITAL Aspirin (Ecotrin*) 325 MG TABLET.DR 1 Tablet ORAL DAILY Comments: Last Taken: 03/10/17 Time: 10:00 AM Divalproex Sodium (Depakote) 250 MG TABLET.DR 1 Tablet ORAL TAKE AT BEDTIME Days = 30 Instructions: as part of 1750 MG dose Comments: Last Taken: 03/09/17 Time: 10:00 PM Polyethylene Glycol 3350 (Miralax) 17 GRAM POWD.PACK 1 Packet ORAL DAILY Instructions: dissolve in water Comments: NOT TAKEN IN HOSPITAL Cholecalciferol (Vitamin D3) 1,000 UNIT TABLET 1 Tablet ORAL DAILY Comments: NOT TAKEN IN HOSPITAL Start taking the following new medications: Amlodipine Besylate (Norvasc) 10 MG TABLET 1 Tablet ORAL Every Morning Qty = 30 No Refills Comments: Last Taken: 03/10/17 Time: 10:00 AM Copies To: YARED TREVIZO MD
--- NOTE | 2017-03-04 17:29 | Cons- Psychiatry ---
Psychiatric Consult Date of Consult: 03/04/17 Reason for Consult: "MS, history of dementia, possible toxic metabolic encephalopathy. Please evaluate mood disorder meds." Ordered by Dr. Razo. Dr. Ricketts attending History of Present Illness: Identifying Info: 76-year-old male presents from long-term care facility with chief complaint of altered mental status. Admitted to medicine with suspected delirium due to UTI. Patient has a known history of dementia. CC: "How about them sports Makenzie cars." HPI: History primarily obtained from patient's daughter, Heather, who is also his POA. In 2014 the patient was diagnosed with vascular dementia. At that time he was experiencing changes in mentation and was "constantly tangential." His speech was incessant in nonsensical. Additionally he was displaying odd hand gestures that treaters at that time might thought might be indicative of an autism spectrum disorder or OCD. His daughter reports that throughout his life he's been resistant to change and which she described as paranoid at times. The patient was started on Depakote and Zoloft which treated the above symptoms to good effect. She did however continue to display cognitive decline. The patient has lived at [facility] since summer of last year and was transferred to the long-term care section of the facility 3 weeks ago. Additionally he was recently transitioned to adult diapers due to incontinence issues. At baseline is reported to be incapable of self-care and will often not eat. Since June of last year the patient has lost approximately 40 pounds. Over the past few days the patient became nonverbal and increasingly confused and lethargic he was recently diagnosed with UTI and has started antibiotics. On day of interview the the patient was reported by family and staff to have made an improvement from his original presentation. He is now responsive and verbal with increased energy. PMH: Please see the H&P for a complete listing Progressive dementia, hypertension, atrial fibrillation (NOT ON ANTICOAGULATION, CHF, depression, anxiety, hyperlipidemia, autism and GERD Past Psych History: -Outpatient None -Inpatient None Family Psych History: None Substance History Not obtained Family Substance History: Not obtained Social: . senior care care resident with 2 adult children. Formerly worked in the [employer]. Born and raised in [place]. Abuse/Trauma: Not obtained Current Home Psychotropic Medications: Depakote ER 1750 mg daily at bedtime Sertraline 175 mg daily Current Hospital Psychotropic Medications: None Allergies: Coded Allergies: No Known Allergies (04/25/16) Current Medications: Current Medications Sig/Gwen Start time Last Medication Dose Route Stop Time Status Admin Acetaminophen 1,000 MG Q6P PRN 03/03 1545 AC IV Amlodipine Besylate 5 MG QAM 03/04 1000 AC 03/04 PO 1043 Aspirin Buffered 325 MG DAILY 03/04 1000 AC 03/04 PO 1043 Bisacodyl 10 MG DAILY PRN 03/03 1600 AC [place] Ceftriaxone Sodium 1,000 MG DAILY 03/04 1000 AC 03/04 IV 1043 Heparin Sodium 5,000 UNIT Q8 03/03 1543 AC 03/04 (Porcine) [place] 1417 Patient Medication 1 ED .STK-MED ONE 03/04 1417 DC Teaching ED 03/04 1418 Potassium Chloride 20 MEQ Q10H 03/03 1545 AC 03/04 Dextrose/Sodium 1,000 ML IV 03/05 0744 1604 Chloride Past History Past Medical History Neurological: CVA, ?EARLY DEMENTIA AUTISM SPECTRUM DISORDER ?ANOXIC BRAIN INJURY EENT: hearing loss Cardiovascular: AFIB, hypertension, DEPENDENT EDEMA Respiratory: NONE Gastrointestinal: GERD Hepatic: NONE Renal: NONE Musculoskeletal: Bilateral KNEE trauma and tendon injury RIB FX Psychiatric: AUSTISM SPECTRUM, OCD (her daughter denied these in front of the patient, according to her patient does not want to know about this as it will affects his vision about his life) Endocrine: NONE Blood Disorders: NONE 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 PESTICIDE/Reproductive: NONE Past Surgical History Surgical History: non-contributory Psychosocial History Strengths/Capabilities: Supportive family Physical Limitations (Interventions): Chronic and degenerative neurological illness Psychiatric Treatment History Psych Treatment Psychiatric Treatment Yes (as above) Diagnosis: Unspecified neurocognitive disorder Rule out autism spectrum disorder Rule out obsessive-compulsive disorder Risk Factors: age (under 24/over 65), chronic/serious med cond., male Substance Use/Abuse History Drug Use/Abuse Substances Used/Abused No Substance Abuse Treatment Substance Abuse Treatment Past Substance Abuse [place] No Assessment/Plan Mental Status Mental Status Exam: Presentation/Appearance: Cooperative with evaluation to best of his ability but patient is unable to participate in meaningful way. [facility]. Orientation: Oriented to self only. States year is 1800s, month as August, date as September, season as "coming up to Winter" Sensorium: Awake and alert Eye contact: Fair Affect: Blunted Mood: Euthymic Depression: Denies Anxiety: Denies Thought Content: - Denies SI/HI, AH/VH, PI. States and also believes they will not kill themselves. Thought Process: Confused Associations: Loose Speech: Minimal Judgment: Poor Insight: Poor Cognition: Memory: Profound deficits noted Attention/Concentration: Profound deficits noted Fund of Knowledge: Adequate Abstractions: Unable to respond to questions appropriately MMSE: Patient is unable to complete, serious deficits in orientation, attention and memory Lab Results: Laboratory Tests 03/04/17 0744: Anion Gap 8, Estimated GFR > 60, BUN/Creatinine Ratio 30.0 H, CBC w Diff NO MAN DIFF REQ, RBC 4.63 L, MCV 91.4, MCH 30.9, RDW 13.4, MPV 7.3 L, Gran % 79.1 H, Lymphocytes % 7.5 L, Monocytes % 12.2 H, Eosinophils % 1.2, Basophils % 0 L, Absolute Granulocytes 4.1, Absolute Lymphocytes 0.4 L, Absolute Monocytes 0.6, Absolute Eosinophils 0.1, Absolute Basophils 0, PUBS MCHC 33.8 03/03/17 1200: Anion Gap 6, Estimated GFR > 60, BUN/Creatinine Ratio 26.7 H, Glucose 103 H, Lactic Acid 1.2, Calcium 9.5, Magnesium 1.7, Total Bilirubin 0.4, AST 11 L, ALT 21, Alkaline Phosphatase 51, Troponin I < 0.01, Total Protein 5.1 L, Albumin 2.8 L, Globulin 2.3, Albumin/Globulin Ratio 1.2, CBC w Diff NO MAN DIFF REQ, RBC 4.68 L, MCV 90.8, MCH 30.7, RDW 13.5, MPV 7.1 L, Gran % 85.2 H, Lymphocytes % 5.4 L, Monocytes % 8.6, Eosinophils % 0.8, Basophils % 0 L, Absolute Granulocytes 7.3 H, Absolute Lymphocytes 0.5 L, Absolute Monocytes 0.7 H, Absolute Eosinophils 0.1, Absolute Basophils 0, PUBS MCHC 33.8 03/03/17 1150: Urine Color ADAM, Urine Clarity HAZY H, Urine pH 6.0, Ur Specific [place] 1.020, Urine Protein 30 H, Urine Ketones NEG, Urine Nitrite NEG, Urine Bilirubin NEG@ICTO, Urine Urobilinogen 2.0 H, Ur Leukocyte Esterase MOD H, Ur Microscopic SEDIMENT EXAMINED, Urine RBC >75 H, Urine WBC 25-50 H, Ur Epithelial Cells FEW, Urine Bacteria RARE H, Hyaline Casts FEW H, Urine Mucus FEW, Urine Hemoglobin LARGE H, Urine Glucose NEG Microbiology 03/03 1423 URINE ROUT: Urine Culture - CAN Cancelled: Cancelled via OE: Duplicate Order 03/03 1215 BLOOD: Blood Culture - RES 03/03 1200 BLOOD: Blood Culture - RES Diffential Diagnosis: Delirium due to urinary tract infection Unspecified neurocognitive disorder Rule out autism spectrum disorder Rule out obsessive-compulsive disorder Rule out cluster a personality disorder Impression: 76-year-old male presents with delirium on dementia due to urinary tract infection. Patient has a history of mood symptoms that are well- controlled on his current medication regimen outside the context of acute confusional process. It would be prudent to restart home psychotropic medications. Provisional Treatment Plan: 1. Please start Depakote ER 1750 mg daily at bedtime. 2. Please draw Depakote level on the morning of 03/08/2017. 3. Please start sertraline 175 mg daily. 4. Please continue to avoid benzodiazepines, opioid analgesics, and meds with strong anticholinergic properties as much as possible to prevent further confusion. 5. Please initiate the following nonpharmacologic interventions: -Avoid nursing and medical procedures during sleep hours whenever possible - Cluster at night interventions that must be completed as much as possible to minimize sleep disruption - Decrease noise patient area during sleeping hours - Reduce lighting at night - Ensure patient has any sensory aids close by that he regularly uses 6. Consider melatonin 10 mg daily at bedtime if delirium disrupts sleeping patterns. Thank you for including psychiatry in this case we will continue to follow.
[2017-03-04 22:11] VITALS: BP 144/100
[2017-03-05 01:26] VITALS: BP 142/90
[2017-03-05 06:39] VITALS: BP 138/94
--- NOTE | 2017-03-05 08:24 | PN- Housestaff ---
[facility] 03[facility]05[facility] 0824: Subjective Follow-up For: pt here for UTI, Confusion and AMS Subjective: Today ucx shows k. pneumonia sensitive to augmentin, cefazolin, cipro and bactrim. He is currently on CTX IV. He has no complaints this AM. However, he still is confused/AMS. Unsure if this is his baseline. Review of Systems Constitutional: Reports: no symptoms. Objective Last 24 Hrs of Vital Signs/I&O Vital Signs Date Time Temp Pulse Resp B/P B/P Pulse O2 O2 Flow FiO2 Mean Ox Delivery Rate 03/05 1416 97.3 79 20 138/80 96 03/05 0949 98.5 63 20 138/94 03/05 0639 98.5 63 20 138/94 94 Room Air 03/05 0126 78 142/90 03/04 2211 97.7 64 20 144/100 95 Room Air Intake & Output 03/05 1600 03/05 0800 03/05 0000 Intake Total 0590 373 7518 Output Total Balance 7014 829 5467 Intake, IV 800 800 800 Intake, Oral 480 120 240 Number 0 1 Bowel Movements Physical Exam General Appearance: Alert, No Acute Distress HEENT: Atraumatic, PERRLA, EOMI Cardiovascular: Regular Rate, Normal S1, Normal S2 Lungs: Normal Air Movement Abdomen: Soft Extremities: No Edema Assessment/Plan Assessment: 76 yo M with past medical condition of dementia, autism, CVA (last one 15 yrs ago), HTN, CHF, afib not on AC due to fall risk, HLD, edema, GRED, depression, anxiety, was sent in by nursing facility for abnormal lab values and altered mental status. He is currently being managed in the general medical floor for the following issues: #Altered mental status, 2/2 UTI His mental condition is likely due to UTI, as his WBC was 19.2 with bandemia of 7 on 03/02/17, with UA showing WBC 25-50, rare bacteria, mod leukocyte esterase. His urine culture is already growing Gran Negative Rods today. He received 1 dose of IM abx already and seems to have responded as his WBC today is 8.6 with no band cells. * Will continue with IV Ceftriaxone for now, SWITCH TO KEFLEX IN AM. * Other causes of AMS can also being considered, including metabloic, pharmacologic, infection/sepsis. Malnutrition, deconditioning, neglect can have a significant role as well. * Avoid sedative/hypnotics/narcotics. * Thank you psych recs for AMS: Will con't Depakote, Sertraline. No longer requires sitter #Dehydration His BUN/Cr ratio is high on admission at 26.7 suggesting dehydration. * Will continue IV fluids for now with dextrose and potassium supplement. * Thank you swallow: suggested puree and nectar thick diet * aspiration precautions #Malnutrition His albumin is 2.8, suggestive of malnutrition although his BMI is 27.6, along the fact that his oral intake has been poor recently. * Will consider Nutrition consult as his mentation improves. #H/o frequent falls He was admitted for fall injury last year in and the last fall was 6 months back. He has frequent falls per family members, which warranted him NOT to be on any anticoagulation for afib. -PT eval and treatment in AM #Diet: NPO for now, pending swallow eval in AM #DVT ppx: Heparin SQ given his renal condition #Code status: Full code Problem List: 1. Dehydration 2. Malnutrition 3. UTI (urinary tract infection) 4. Altered mental state Pain Ratin Pain Location: none Pain Goal: Remain pain free Pain Plan: none Tomorrow's Labs & Rationales: cbc EBONY Coronel MD 03/05/172115: Attending MD Review Statement Attending Statement Attending MD Statement: examined this patient, discuss w/resident/PA/RAIL TRACK LAYER, agreed w/resident/PA/RAIL TRACK LAYER, discussed with family, reviewed EMR data (avail), discussed with nursing, discussed with case mgmt, amended to note Attending Assessment/Plan: The patient continues to improve. No fever or chills. Klebsiella UTI. Await placement in SNF closer to his daughter's home in [place]. Continue IV Ceftriaxone.
[2017-03-05 09:02] LABS: ABSOLUTE BASOPHIL COUNT 0 /CUMM (0.0-0.2); ABSOLUTE EOSINOPHIL COUNT 0.1 /CUMM (0.0-0.7); ABSOLUTE GRANULOCYTE CT 3.4 /CUMM (1.4-6.5); ABSOLUTE LYMPH COUNT 0.7 /CUMM (1.2-3.4); ABSOLUTE MONOCYTE COUNT 0.9 /CUMM (0.10-0.60); BASOPHIL % 0.3 % (0.0-2.0); GRANULOCYTE % 65.8 % (42.2-75.2); HEMATOCRIT 44.3 % (42-52); MEAN CORPUSCULAR HGB 30.5 PG (27.0-31.0); MEAN CORPUSCULAR HGB CONC 33.4 G/DL (33.0-37.0); MEAN CORPUSCULAR VOLUME 91.4 FL (80.0-94.0); MEAN PLATELET VOLUME 7.8 FL (7.4-10.4); PLATELET COUNT 108 /CUMM (130-400); RBC DISTRIBUTION WIDTH 13.7 % (11.5-14.5); RED BLOOD CELL CT 4.85 /CUMM (4.70-6.10); WHITE BLOOD CELL COUNT 5.2 /CUMM (4.8-10.8)
[2017-03-05 14:16] VITALS: BP 138/80
[2017-03-05 23:04] VITALS: BP 124/90
[2017-03-06 06:01] VITALS: BP 146/72
--- NOTE | 2017-03-06 07:06 | PN- Housestaff ---
See Addendum Subjective Follow-up For: Altered mental status, UTI Complaints: no complaints Subjective: I followed up and examined the patient today. He is resting comfortably in his bed, does not appear to be in distress, with mental status improved, he is responding well to questions asked. He still has difficulty answering questions pertaining to orientation. His vitals have been stable, no overnight events. He is to start oral antibiotics today. Review of Systems Constitutional: Reports: no symptoms. Objective Last 24 Hrs of Vital Signs/I&O Vital Signs Date Time Temp Pulse Resp B/P B/P Pulse O2 O2 Flow FiO2 Mean Ox Delivery Rate 03/06 0930 64 118/84 98 Room Air 03/06 0924 64 118/84 03/06 0601 98.8 76 20 146/72 94 Room Air 03/05 2304 98.6 75 20 124/90 93 Room Air 03/05 1600 Room Air 03/05 1416 97.3 79 20 138/80 96 Intake & Output 03/06 1600 03/06 0800 03/06 0000 Intake Total 200 Output Total Balance 200 Intake, IV 20 Intake, Oral 180 Number 1 1 Bowel Movements Physical Exam General Appearance: Alert, Oriented X3, Cooperative, No Acute Distress, obese Other Physical Findings: Skin No Rashes, No Breakdown, No Significant Lesion Skin Temp/Moisture Exam: Warm/Dry HEENT Atraumatic, PERRLA, dry mucosa Neck Supple, No JVD Lymphatic Cervical nl Cardiovascular No Murmurs, irregular rate Lungs Clear to Auscultation, Normal Air Movement, basal crackles heard Abdomen Normal Bowel Sounds, Soft, No Tenderness, no CVA tenderness Neurological Normal Speech, GROSSLY INTACT, BUT HIGHER MENTAL STATUS IS DIFFICULT TO ASSESS, he can follow instructions and is responding well having conversations both ways Extremities No Clubbing, No Cyanosis, No Edema, Normal Pulses, No Tenderness/ Swelling Vascular Normal Pulses, Pulses Symmetrical Current Medications: Current Medications Sig/Gwen Start time Last Medication Dose Route Stop Time Status Admin Acetaminophen 1,000 MG Q6P PRN 03/03 1545 AC IV Amlodipine Besylate 5 MG QAM 03/04 1000 AC 03/06 PO 0924 Aspirin Buffered 325 MG DAILY 03/04 1000 AC 03/06 PO 0924 Bisacodyl 10 MG DAILY PRN 03/[address] Ceftriaxone Sodium 1,000 MG DAILY 03/04 1000 DC 03/05 IV 03/06 0600 1004 Cephalexin 500 MG Q12 03/06 1000 AC 03/06 PO 0924 Divalproex Sodium 1,750 MG AT BEDTIME 03/04 2345 AC 03/05 PO 2101 Heparin Sodium 5,000 UNIT Q8 03/03 1543 AC 03/06 (Porcine) SC 0541 Sertraline HCl 175 MG DAILY 03/05 1000 AC 03/06 PO 0924 Last 24 Hrs of Lab/Bala Results Last 24 Hrs of Labs/Mics: Laboratory Tests 03/06/17 0645: Anion Gap 6, Estimated GFR > 60, BUN/Creatinine Ratio 15.0, CBC w Diff NO MAN DIFF REQ, RBC 4.66 L, MCV 91.8, MCH 30.5, RDW 13.4, MPV 7.4, Gran % 65.4, Lymphocytes % 13.8 L, Monocytes % 18.3 H, Eosinophils % 2.2, Basophils % 0.3, Absolute Granulocytes 4.4, Absolute Lymphocytes 0.9 L, Absolute Monocytes 1.2 H, Absolute Eosinophils 0.1, Absolute Basophils 0, PUBS MCHC 33.3 Assessment/Plan Assessment: 76 yo M with past medical condition of dementia, autism, CVA (last one 15 yrs ago), HTN, CHF, afib not on AC due to fall risk, HLD, edema, GRED, depression, anxiety, was sent in by nursing facility for abnormal lab values and altered mental status. He is currently being managed in the general medical floor for the following issues: #Altered mental status, 2/2 UTI His mental condition is likely due to UTI, as his WBC was 19.2 with bandemia of 7 on 03/02/17, with UA showing WBC 25-50, rare bacteria, mod leukocyte esterase. His urine culture grew Klebsiella pneumoniae, sensitive to cephalosporins. He received 1 dose of IM CTX, and was on IV CTX until yesterday. His mentation has improved, and his vitals have remained stable. * He has been switched to oral antibiotics Keflex from today. * Avoid sedative/hypnotics/narcotics. * Thank you psych recs for AMS: Will con't Depakote, Sertraline. No longer requires sitter. #Dehydration His BUN/Cr ratio is high on admission at 26.7 suggesting dehydration. * We'll encourage oral fluids intake. * ST suggested chopped food and regular thin liquid diet * Continue aspiration precautions #Malnutrition His albumin is 2.8, suggestive of malnutrition although his BMI is 27.6, along the fact that his oral intake has been poor recently. * Will consider Nutrition consult as his mentation improves. #H/o frequent falls He was admitted for fall injury last year in and the last fall was 6 months back. He has frequent falls per family members, which warranted him NOT to be on any anticoagulation for afib. -PT eval and treatment in AM-->> STR suggested by PT. CM searching for STR near [place] where the family can be closer per family request. #Diet: NPO for now, pending swallow eval in AM #DVT ppx: Heparin SQ given his renal condition #Code status: Full code Problem List: 1. Altered mental status, unspecified 2. UTI (urinary tract infection) Pain Ratin Pain Location: - Pain Goal: Pain 4 or less Pain Plan: prn Tomorrow's Labs & Rationales: CBC Pain Plan: prn
[2017-03-06 07:57] LABS: ABSOLUTE BASOPHIL COUNT 0 /CUMM (0.0-0.2); ABSOLUTE EOSINOPHIL COUNT 0.1 /CUMM (0.0-0.7); ABSOLUTE GRANULOCYTE CT 4.4 /CUMM (1.4-6.5); ABSOLUTE LYMPH COUNT 0.9 /CUMM (1.2-3.4); ABSOLUTE MONOCYTE COUNT 1.2 /CUMM (0.10-0.60); BASOPHIL % 0.3 % (0.0-2.0); EOSINOPHIL % 2.2 % (0-5); GRANULOCYTE % 65.4 % (42.2-75.2); HEMATOCRIT 42.8 % (42-52); MEAN CORPUSCULAR HGB 30.5 PG (27.0-31.0); MEAN CORPUSCULAR HGB CONC 33.3 G/DL (33.0-37.0); MEAN CORPUSCULAR VOLUME 91.8 FL (80.0-94.0); MEAN PLATELET VOLUME 7.4 FL (7.4-10.4); PLATELET COUNT 112 /CUMM (130-400); RBC DISTRIBUTION WIDTH 13.4 % (11.5-14.5); RED BLOOD CELL CT 4.66 /CUMM (4.70-6.10); WHITE BLOOD CELL COUNT 6.8 /CUMM (4.8-10.8)
--- NOTE | 2017-03-06 08:33 | Patient Discharge Instructions ---
Discharge Instructions General Discharge Information You were seen/treated for: Altered mental ststus, secondary to Urinary tract infection (UTI). Hypertension Special Instructions: Please visit your PCP within 10 days of discharge. Please visit [facility] with Dr Mina within 7-10 days of discharge. Please return to emergency if symptoms worsen. Diet Continue normal diet: No Recommended Diet: Chopped food and regular thin liquid diet Activity Full Activity/No Limits: No Acute Coronary Syndrome Inclusion Criteria At DC or during hospital stay patient has or had the following: ACS DIAGNOSIS No Discharge Core Measures Meds if any: Prescribed or Continued at Discharge Meds if any: NOT Prescribed or Continued at Discharge Congestive Heart Failure Inclusion Criteria At DC or during hospital stay patient has or had the following: CHF DIAGNOSIS No Discharge Core Measures Meds if any: Prescribed or Continued at Discharge Meds if any: NOT Prescribed or Continued at Discharge Cerebrovascular accident Inclusion Criteria At DC or during hospital stay patient has or had the following: CVA/TIA Diagnosis No Discharge Core Measures Meds if any: Prescribed or Continued at Discharge Meds if any: NOT Prescribed or Continued at Discharge Venous thromboembolism Inclusion Criteria VTE Diagnosis No VTE Type NONE VTE Confirmed by (Test) NONE Discharge Core Measures - Per Current guidelines, there needs to be overlap - treatment for the first 5 days of Warfarin therapy. - If discharged on Warfarin prior to 5 days of - overlap therapy, the patient will need to be - assessed for post discharge needs including - *Post discharge parental anticoagulation - *Warfarin and/or parental anticoagulation education - *Follow up date to check INR post discharge At least 5 days overlap therapy as Inpatient No Meds if any: Prescribed or Continued at Discharge Note: Overlap Therapy is Warfarin and Anticoagulant Meds if any: NOT Prescribed or Continued at Discharge
[2017-03-06 09:30] VITALS: BP 118/84
[2017-03-06 14:18] VITALS: BP 140/80
[2017-03-06] MEDS ORDERED: CEPHALEXIN500 M3 PO (15:51)
--- NOTE | 2017-03-06 15:54 | PN- Att Addend ---
TARIQ LARA 03/06/17 1550: Attending Addendum Attending Brief Note I was informed by the rifle case repairer that patient's daughter is upset that his father's IV antibiotic was switched to PO with her being part of the decsion making loop. I contacted the registered number for her daughter. Unfortunately I was not able to talk to her (she was not available) and I eventually ended up leaving a voice alex on her cell phone. EBONY GONZALEZ MD 03/07/17 0744: Attending Addendum Attending Brief Note I subsequently spoke with the patient's daughter and explained the change of antibiotic and she understood. Still concern regarding po intake. Will do calorie count and ask nursing to feed patient.
--- NOTE | 2017-03-06 16:17 | PN- Psychiatry ---
Assessment/Plan Impression: Identifying Info: 76-year-old male presents from long-term care facility with chief complaint of altered mental status. Admitted to medicine with suspected delirium due to UTI. Patient has a known history of dementia. SUBJECTIVE Pt states "actually I'm pretty good." When asked why he is in the hospital states "I have no idea why I am here... why do you think I'm here?" Brief ROS Gait: Unobserved Sleep: Did not assess Appetite: Did not assess OBJECTIVE Mental Status Exam Presentation/Appearance: Cooperative with evaluation to best of his ability but patient is unable to participate in meaningful way. Hospital garb. Orientation: Oriented to self only. States year is "87," unable to state place or situation Sensorium: Awake and alert Eye contact: Fair Affect: Flat Mood: Euthymic Depression: Denies Anxiety: Denies Thought Content: - Denies SI/HI, AH/VH, PI. States and also believes they will not kill themselves. Thought Process: Paucity of content Associations: Loose Speech: Minimal, long latency in response Judgment: Poor Insight: Poor Cognition: Memory: Profound deficits noted Attention/Concentration: Profound deficits noted Fund of Knowledge: Adequate Abstractions: Unable to respond to questions appropriately MMSE: Patient is unable to complete, serious deficits in orientation, attention and memory ASSESSMENT 76-year-old male presents with delirium on dementia due to urinary tract infection which is now resolved. Improvement in communication and mild improvement in attention noted today. Patient has a history of mood symptoms that are well-controlled on his current medication regimen outside the context of acute confusional process. It would be prudent to continue home psychotropic medications. Diagnosis Delirium due to urinary tract infection, resolved Unspecified neurocognitive disorder Rule out autism spectrum disorder Rule out obsessive-compulsive disorder Rule out cluster a personality disorder A total of 30 minutes was spent with the patient with more than 50% of the time spent in counseling and/or coordination of care. Suggestion: 1. Continue psychotropics as currently ordered. 2. Please draw Depakote level on the morning of 03/08/2017 3. Please continue to avoid benzodiazepines, opioid analgesics, and meds with strong anticholinergic properties as much as possible to prevent further confusion. 5. Please continue the following nonpharmacologic interventions: -Avoid nursing and medical procedures during sleep hours whenever possible - Cluster at night interventions that must be completed as much as possible to minimize sleep disruption - Decrease noise patient area during sleeping hours - Reduce lighting at night - Ensure patient has any sensory aids close by that he regularly uses Thank you for including psychiatry in this case we will continue to follow as needed. Subjective Subjective: as above Objective Last 24 Hrs of Vital Signs/I&O Current Medications Sig/Gwen Start time Last Medication Dose Route Stop Time Status Admin Acetaminophen 1,000 MG Q6P PRN 03/03 1545 AC IV Amlodipine Besylate 5 MG QAM 03/04 1000 AC 03/06 PO 0924 Aspirin Buffered 325 MG DAILY 03/04 1000 AC 03/06 PO 0924 Bisacodyl 10 MG DAILY PRN 03/03 1600 AC OR Ceftriaxone Sodium 1,000 MG DAILY 03/04 1000 DC 03/05 IV 03/06 0600 1004 Cephalexin 500 MG Q12 03/06 1000 AC 03/06 PO 0924 Divalproex Sodium 1,750 MG AT BEDTIME 03/04 2345 AC 03/05 PO 2101 Heparin Sodium 5,000 UNIT Q8 03/03 1543 AC 03/06 (Porcine) CA 1436 Patient Medication 1 ED .STK-MED ONE 03/06 1422 [place] Teaching ED 03/06 1423 Sertraline HCl 175 MG DAILY 03/05 1000 AC 03/06 PO 0924 Laboratory Tests 03/06/17 0645: Anion Gap 6, Estimated GFR > 60, BUN/Creatinine Ratio 15.0, CBC w Diff NO MAN DIFF REQ, RBC 4.66 L, MCV 91.8, MCH 30.5, RDW 13.4, MPV 7.4, Gran % 65.4, Lymphocytes % 13.8 L, Monocytes % 18.3 H, Eosinophils % 2.2, Basophils % 0.3, Absolute Granulocytes 4.4, Absolute Lymphocytes 0.9 L, Absolute Monocytes 1.2 H, Absolute Eosinophils 0.1, Absolute Basophils 0, PUBS MCHC 33.3 Vital Signs Date Time Temp Pulse Resp B/P B/P Pulse O2 O2 Flow FiO2 Mean Ox Delivery Rate 03/06 1513 Room Air 03/06 1418 98.0 80 18 140/80 96 Room Air 03/06 0930 64 118/84 98 Room Air 03/06 0924 64 118/84 03/06 0601 98.8 76 20 146/72 94 Room Air 03/05 2304 98.6 75 20 124/90 93 Room Air Intake & Output 03/06 1600 03/06 0800 03/06 0000 Intake Total 240 200 Output Total Balance 240 200 Intake, IV 20 Intake, Oral 240 180 Number 1 1 Bowel Movements
[2017-03-06 22:35] VITALS: BP 144/80
[2017-03-07 07:00] VITALS: BP 150/80
--- NOTE | 2017-03-07 07:33 | PN- Housestaff ---
ARABELLA REYNA,ROBERTA 03/07/17 0733: Subjective Follow-up For: Altered mental status, UTI Complaints: no complaints Subjective: I followed up and examined the patient today. He is resting comfortably in his bed, having his breakfast, most of which is already finished, not in distress, does not offer any complaints. He is more verbal today, is animated, and has a good appetite. Vitals have been stable, no overnight events. Review of Systems Constitutional: Reports: no symptoms. Objective Last 24 Hrs of Vital Signs/I&O Vital Signs Date Time Temp Pulse Resp B/P B/P Pulse O2 O2 Flow FiO2 Mean Ox Delivery Rate 03/07 0904 76 126/80 03/07 0700 97.6 60 20 150/80 94 Room Air 03/06 2235 97.6 67 20 144/80 97 Room Air 03/06 1513 Room Air 03/06 1418 98.0 80 18 140/80 96 Room Air Intake & Output 03/07 1600 03/07 0800 03/07 0000 Intake Total 0 640 Output Total 100 Balance 0 540 Intake, IV 0 Intake, Oral 0 640 Number 0 1 Bowel Movements Output, Urine 100 Physical Exam General Appearance: Alert, Oriented X3, Cooperative, No Acute Distress, overweight Other Physical Findings: Skin No Rashes, No Breakdown, No Significant Lesion Skin Temp/Moisture Exam: Warm/Dry HEENT Atraumatic, PERRLA, moist mucosa Neck Supple, No JVD Lymphatic Cervical nl Cardiovascular No Murmurs, irregular rate Lungs Clear to Auscultation, Normal Air Movement, basal crackles heard Abdomen Normal Bowel Sounds, Soft, No Tenderness, no CVA tenderness Neurological Normal Speech, grossly intact, mentation is better than yesterday Extremities No Clubbing, No Cyanosis, No Edema, Normal Pulses, No Tenderness/ Swelling Vascular Normal Pulses, Pulses Symmetrical Current Medications: Current Medications Sig/Gwen Start time Last Medication Dose Route Stop Time Status Admin Acetaminophen 1,000 MG Q6P PRN 03/03 1545 AC IV Amlodipine Besylate 5 MG QAM 03/04 1000 AC 03/07 PO 09 Aspirin Buffered 325 MG DAILY 03/04 1000 AC 03/07 PO 09 Bisacodyl 10 MG DAILY PRN 03/03 1600 AC WI Cephalexin 500 MG Q12 03/06 1000 AC 03/07 PO 09 Divalproex Sodium 1,750 MG AT BEDTIME 03/04 2345 AC 03/06 PO 2106 Heparin Sodium 5,000 UNIT Q8 03/03 1543 AC 03/07 (Porcine) SC 0542 Patient Medication 1 ED .STK-MED ONE 03/06 1422 [place] Teaching ED 03/06 1423 Sertraline HCl 175 MG DAILY 03/05 1000 AC 03/07 PO 0905 Last 24 Hrs of Lab/Bala Results Last 24 Hrs of Labs/Mics: Laboratory Tests 03/07/17 0641: CBC w Diff NO MAN DIFF REQ, RBC 4.61 L, MCV 91.6, MCH 30.6, RDW 13.8, MPV 7.3 L, Gran % 65.7, Lymphocytes % 15.3 L, Monocytes % 16.2 H, Eosinophils % 2.4, Basophils % 0.4, Absolute Granulocytes 5.5, Absolute Lymphocytes 1.3, Absolute Monocytes 1.4 H, Absolute Eosinophils 0.2, Absolute Basophils 0, PUBS MCHC 33.4 Assessment/Plan Assessment: 76 yo M with past medical condition of dementia, autism, CVA (last one 15 yrs ago), HTN, CHF, afib not on AC due to fall risk, HLD, edema, GRED, depression, anxiety, was sent in by nursing facility for abnormal lab values and altered mental status. He is currently being managed in the general medical floor for the following issues: #Altered mental status, 2/2 UTI His mental condition is likely due to UTI, as his WBC was 19.2 with bandemia of 7 on 03/02/17, with UA showing WBC 25-50, rare bacteria, mod leukocyte esterase. His urine culture grew Klebsiella pneumoniae, sensitive to cephalosporins. He received 1 dose of IM CTX, and was on IV CTX until yesterday. His mentation has improved, and his vitals have remained stable. * Patient seems to be getting better, is more alert and verbal today. * For UTI, he has been switched to oral antibiotics Keflex from . * Avoid sedative/hypnotics/narcotics. * Thank you psych recs for AMS: Will con't Depakote, Sertraline. No longer requires sitter. #Dehydration His BUN/Cr ratio is high on admission at 26.7 suggesting dehydration. * We'll encourage oral fluids intake. * ST suggested chopped food and regular thin liquid diet * Continue aspiration precautions #Malnutrition His albumin is 2.8, suggestive of malnutrition although his BMI is 27.6, along the fact that his oral intake has been poor recently. * Nutrition consult already placed. * Patient has very good appetite today. He ate his whole breakfast, as well as a magic cup contents (nutrition supplement). * Continue to monitor his nutrition intake. #H/o frequent falls He was admitted for fall injury last year in and the last fall was 6 months back. He has frequent falls per family members, which warranted him NOT to be on any anticoagulation for afib. -PT eval and treatment: He still requires assist of 1-2 and discharge to [facility] has been recommended. CM searching for STR near [place] where the family can be closer per family request. #Diet: NPO for now, pending swallow eval in AM #DVT ppx: Heparin SQ given his renal condition #Code status: Full code Problem List: 1. Altered mental status, unspecified 2. Dehydration 3. Malnutrition 4. UTI (urinary tract infection) Pain Ratin Pain Location: - Pain Goal: Pain 4 or less Pain Plan: prn Tomorrow's Labs & Rationales: CBC low plt, BEP nutritionally poor, might require repletion, Mg EBONY GONZALEZ MD 03/07/17 1308: Attending MD Review Statement Attending Statement Attending MD Statement: examined this patient, discuss w/resident/PA/MASTER OCEAN YACHT, agreed w/resident/PA/MASTER OCEAN YACHT, reviewed EMR data (avail), discussed with nursing, discussed with case mgmt, amended to note Attending Assessment/Plan: The patient was seen and discussed with house staff, nursing and case management. PO intake was good this morning (both fluid and food/nutritional supplements). We are following I/O's and calorie count. Case management is actively working on STR bed at facilities near the patient's daughter in [place]. Will speak with Dr. Shoemaker who is the patient's primary attending at [facility] regarding issues- daughter is concerned regarding his po intake/food intake there.
[2017-03-07 08:37] LABS: ABSOLUTE BASOPHIL COUNT 0 /CUMM (0.0-0.2); ABSOLUTE EOSINOPHIL COUNT 0.2 /CUMM (0.0-0.7); ABSOLUTE GRANULOCYTE CT 5.5 /CUMM (1.4-6.5); ABSOLUTE LYMPH COUNT 1.3 /CUMM (1.2-3.4); ABSOLUTE MONOCYTE COUNT 1.4 /CUMM (0.10-0.60); BASOPHIL % 0.4 % (0.0-2.0); EOSINOPHIL % 2.4 % (0-5); GRANULOCYTE % 65.7 % (42.2-75.2); HEMATOCRIT 42.2 % (42-52); MEAN CORPUSCULAR HGB 30.6 PG (27.0-31.0); MEAN CORPUSCULAR HGB CONC 33.4 G/DL (33.0-37.0); MEAN CORPUSCULAR VOLUME 91.6 FL (80.0-94.0); MEAN PLATELET VOLUME 7.3 FL (7.4-10.4); PLATELET COUNT 122 /CUMM (130-400); RBC DISTRIBUTION WIDTH 13.8 % (11.5-14.5); RED BLOOD CELL CT 4.61 /CUMM (4.70-6.10); WHITE BLOOD CELL COUNT 8.4 /CUMM (4.8-10.8)
--- NOTE | 2017-03-07 09:12 | ECHOCARDIOGRAM REPORT ---
VALENTINO GOSS Age: 76 : 1940 Gender: M Exam Date: 03/06/2017 19:45 Exam Location: [address] [place] [address] A Ht (in): 74 Wt (lb): 214 BSA: 2.27 BP: 140 / 80 Ordering Physician: TARIQ LARA MD Referring Physician: TARIQ LARA MD Technologist: Nikki Rubin [facility] Room Number: 224-02 Indications: STRUCTURAL HEART DISEASE Rhythm: Atrial fibrillation Technical Quality: Fair FINDINGS Left Ventricle Normal size left ventricle. Moderate concentric left ventricular hypertrophy. Normal left ventricular ejection fraction visually estimated at >65 %. No obvious regional wall motion abnormalities. Right Ventricle Right ventricle not well visualized, grossly normal. Right Atrium Right atrium not well visualized, grossly normal. Left Atrium Mild to moderate left atrial dilatation. Mitral Valve Mild thickening/calcification of the mitral valve leaflets. Trace mitral regurgitation. Aortic Valve Diffuse thickening (sclerosis) of the aortic valve cusps without reduced excursion. No aortic stenosis. Mild aortic regurgitation. Tricuspid Valve Tricuspid valve not well visualized, grossly normal. No tricuspid regurgitation. Unable to estimate the right ventricular systolic pressure. Pulmonic Valve Pulmonic valve not well visualized, grossly normal. No pulmonic regurgitation. Pericardium No pericardial or pleural effusion. Great Vessels The aortic root is mildly dilated at 4.0 cm. The ascending aorta is mildly dilated at 3.9 cm. CONCLUSIONS Moderate concentric left ventricular hypertrophy. Normal left ventricular ejection fraction visually estimated at >65 No obvious regional wall motion abnormalities. Mild to moderate left atrial dilatation. Mild thickening/calcification of the mitral valve leaflets. Trace mitral regurgitation. Diffuse thickening (sclerosis) of the aortic valve cusps without reduced excursion. No aortic stenosis. Mild aortic regurgitation. Unable to estimate the right ventricular systolic pressure. The aortic root is mildly dilated at 4.0 cm. The ascending aorta is mildly dilated at 3.9 cm. Jose Gonzalez M.D. (Electronically Signed) Final Date: 07 March 2017 09:11 MEASUREMENTS (Male / Female) Normal Values 2D ECHO LV Diastolic Diameter PLAX 3.5 cm 4.2 - 5.9 / 3.9 - 5.3 cm LV Systolic Diameter PLAX 2.2 cm 2.1 - 4.0 cm LV Fractional Shortening PLAX 37.1 % 25 - 46 % LV Ejection Fraction 2D Teich 68.1 % IVS Diastolic Thickness 1.4 cm LVPW Diastolic Thickness 1.4 cm LV Relative Wall Thickness 0.8 RV Internal Dim ED PLAX 3.0 cm 1.9 - 3.8 cm LVOT Diameter 2.2 cm Aortic Root Diameter 4.0 cm LA Systolic Diameter LX 4.2 cm 3.0 - 4.0 / 2.7 - 3.8 cm LA Volume 71.0 cm 18 - 58 / 22 - 52 cm Ascending Aorta Diameter 3.9 cm DOPPLER AV Peak Velocity 91.0 cm/s AV Peak Gradient 3.3 mmHg AV Mean Velocity 61.0 cm/s AV Mean Gradient 2.0 mmHg AV Velocity Time Integral 19.5 cm LVOT Peak Velocity 66.9 cm/s LVOT Peak Gradient 1.8 mmHg LVOT Mean Velocity 47.2 cm/s LVOT Mean Gradient 1.0 mmHg LVOT Velocity Time Integral 13.6 cm LVOT Stroke Volume 51.7 cm AV Area Cont Eq vti 2.7 cm AV Area Cont Eq pk 2.8 cm MV Peak Velocity 95.8 cm/s MV Peak Gradient 3.7 mmHg MV Mean Velocity 52.9 cm/s MV Mean Gradient 1.0 mmHg Mitral E Point Velocity 70.6 cm/s MV PHT Velocity 99.8 cm/s MV Deceleration [place] 452.0 cm/s MV Pressure Half Time 66.2 ms MV Area PHT 3.3 cm MV Deceleration Time 211.0 ms PV Peak Velocity 67.2 cm/s PV Peak Gradient 1.8 mmHg PV Mean Velocity 47.9 cm/s PV Mean Gradient 1.0 mmHg PV Velocity Time Integral 14.7 cm LV E' Lateral Velocity 8.4 cm/s Mitral E to LV E' Lateral Ratio 8.4 LV E' Septal Velocity 7.2 cm/s Mitral E to LV E' Septal Ratio 9.8
[2017-03-07 14:03] VITALS: BP 138/70
[2017-03-07 23:05] VITALS: BP 140/80
[2017-03-08 06:39] VITALS: BP 132/68
[2017-03-08 08:51] LABS: ABSOLUTE BASOPHIL COUNT 0 /CUMM (0.0-0.2); ABSOLUTE EOSINOPHIL COUNT 0.2 /CUMM (0.0-0.7); ABSOLUTE GRANULOCYTE CT 5.7 /CUMM (1.4-6.5); ABSOLUTE LYMPH COUNT 1.4 /CUMM (1.2-3.4); ABSOLUTE MONOCYTE COUNT 1.6 /CUMM (0.10-0.60); BASOPHIL % 0.2 % (0.0-2.0); EOSINOPHIL % 1.9 % (0-5); GRANULOCYTE % 64.4 % (42.2-75.2); HEMATOCRIT 42.7 % (42-52); MEAN CORPUSCULAR VOLUME 91.2 FL (80.0-94.0); MEAN PLATELET VOLUME 7.3 FL (7.4-10.4); PLATELET COUNT 139 /CUMM (130-400); RBC DISTRIBUTION WIDTH 13.9 % (11.5-14.5); RED BLOOD CELL CT 4.69 /CUMM (4.70-6.10); WHITE BLOOD CELL COUNT 8.9 /CUMM (4.8-10.8)
[2017-03-08 14:51] VITALS: BP 150/88
--- NOTE | 2017-03-08 15:33 | PN- Att Addend ---
Attending MD Review Statement Attending Statement Attending MD Statement: examined this patient, discuss w/resident/PA/ELECTRICIAN WIRING, agreed w/resident/PA/ELECTRICIAN WIRING, reviewed EMR data (avail), discussed w/nursing Attending Assessment/Plan: Laboratory Tests 03/08/17 0642: Anion Gap 7, Estimated GFR > 60, BUN/Creatinine Ratio 17.8, Magnesium 1.9, CBC w Diff NO MAN DIFF REQ, RBC 4.69 L, MCV 91.2, MCH 31.0, RDW 13.9, MPV 7.3 L, Gran % 64.4, Lymphocytes % 15.8 L, Monocytes % 17.7 H, Eosinophils % 1.9, Basophils % 0.2, Absolute Granulocytes 5.7, Absolute Lymphocytes 1.4, Absolute Monocytes 1.6 H, Absolute Eosinophils 0.2, Absolute Basophils 0, PUBS MCHC 34.0 , Valproic Acid 85.1 Vital Signs Date Time Temp Pulse Resp B/P B/P Pulse O2 O2 Flow FiO2 Mean Ox Delivery Rate 03/08 1451 98.5 74 20 150/88 95 03/08 0902 76 132/68 03/08 0639 98.2 76 20 132/68 94 Room Air 03/07 2305 99.1 77 20 140/80 94 Room Air infectious encephalopathy- sec to UTI- mental status improving according to nursing. cont on abx. on po keflex. Underlying demenita. DC to STR when bed available.
--- NOTE | 2017-03-08 15:43 | PN- Housestaff ---
Subjective Follow-up For: AMS, Lethargy Complaints: no complaints Subjective: I saw and examined the patient this AM. Pt was sitting up in bed eating breakfast. Pt denied any complaints today. Denies chest pain, SOB, fever or chills. States he has a good appetite. Denies any acute events overnight. Review of Systems Constitutional: Denies: no symptoms, see HPI, chills, diaphoresis, fever, malaise, weakness, unexplained weight loss. Cardiovascular: Denies: chest pain. Respiratory: Denies: cough, short of breath. Gastrointestinal: Denies: abdominal pain, nausea, vomiting. Objective Last 24 Hrs of Vital Signs/I&O Vital Signs Date Time Temp Pulse Resp B/P B/P Pulse O2 O2 Flow FiO2 Mean Ox Delivery Rate 03/08 1451 98.5 74 20 150/88 95 03/08 0902 76 132/68 03/08 0639 98.2 76 20 132/68 94 Room Air 03/07 2305 99.1 77 20 140/80 94 Room Air Intake & Output 03/08 1600 03/08 0800 03/08 0000 Intake Total 1125 100 200 Output Total Balance 1125 100 200 Intake, Oral 1125 100 200 Number 1 2 Bowel Movements Physical Exam General Appearance: Alert, Cooperative, No Acute Distress Skin Temp/Moisture Exam: Warm/Dry HEENT: Atraumatic, PERRLA, EOMI, Mucous Membr. moist/pink Cardiovascular: Regular Rate, Normal S1, Normal S2, No Murmurs Lungs: Clear to Auscultation Abdomen: Normal Bowel Sounds, Soft, No Tenderness Extremities: No Edema, Normal Pulses Assessment/Plan Assessment: 76 y/o male with past medical history of dementia, autism, CVA (last one 15 yrs ago), HTN, CHF, afib not on AC due to fall risk, HLD, edema, GRED, depression, anxiety, was sent in by nursing facility for abnormal lab values and altered mental status. He is currently being managed in the general medical floor for the following issues: 1. Altered mental status, 2/2 UTI His mental condition is likely due to UTI, as his WBC was 19.2 with bandemia of 7 on 03/02/17, with UA showing WBC 25-50, rare bacteria, mod leukocyte esterase. His urine culture grew Klebsiella pneumoniae, sensitive to cephalosporins. He received 1 dose of IM CTX, and was on IV CTX until yesterday. His mentation has improved, and his vitals have remained stable. * Patient seems to be getting better, is more alert and verbal today. * For UTI, he has been switched to oral antibiotics Keflex from . * Avoid sedative/hypnotics/narcotics. * Thank you psych recs for AMS: Will con't Depakote, Sertraline. No longer requires sitter. * Valproic acid level checked today within normal range at 85.1 2. Dehydration - Resolved BUN/Cr ratio high on admission. Dehydration due to AMS and poor oral intake. Patient is now on advanced diet. BUN/Cr ratio and physical exam are WNL. * Continue regular diet. 3. Malnutrition - Resolving His albumin is 2.8, suggestive of malnutrition although his BMI is 27.6, along the fact that his oral intake has been poor recently. * Nutrition consult already placed. * Patient continues to have a good appetite. Will continue to monitor until discharge. 4. H/o frequent falls He was admitted for fall injury last year in and the last fall was 6 months back. He has frequent falls per family members, which warranted him NOT to be on any anticoagulation for afib. -PT eval and treatment: He still requires assist of 1-2 and discharge to STR has been recommended. 5. Discharge pending * CM searching for STR near [place] where the family can be closer per family request. #Diet: Regular diet #DVT ppx: Heparin SQ given his renal condition #Code status: Full code Problem List: 1. Altered mental state 2. UTI (urinary tract infection) 3. Dehydration 4. Malnutrition Pain Ratin Pain Location: none Pain Goal: Remain pain free Pain Plan: none Tomorrow's Labs & Rationales: none
[2017-03-08 21:55] VITALS: BP 140/80
[2017-03-09 06:30] VITALS: BP 142/78
--- NOTE | 2017-03-09 09:33 | PN- Housestaff ---
Subjective Follow-up For: AMS, Lethargy Subjective: I saw and examined the patient this AM. Pt was sitting in bed sleeping. Pt denied any complaints today. Denies chest pain, SOB, fever or chills. States he has a good appetite and is ready to leave. Denies any acute events overnight. Review of Systems Constitutional: Denies: no symptoms, see HPI, chills, diaphoresis, fever, malaise, weakness, unexplained weight loss. Cardiovascular: Denies: chest pain, palpitations. Respiratory: Denies: cough, short of breath. Gastrointestinal: Denies: abdominal pain, nausea, vomiting. Objective Last 24 Hrs of Vital Signs/I&O Vital Signs Date Time Temp Pulse Resp B/P B/P Pulse O2 O2 Flow FiO2 Mean Ox Delivery Rate 03/09 0911 73 18 142/78 03/09 0630 98.7 73 18 142/78 94 Room Air 03/08 2155 98.4 78 20 140/80 95 Room Air 03/08 1451 98.5 74 20 150/88 95 Intake & Output 03/09 1600 03/09 0800 03/09 0000 Intake Total 600 280 Output Total Balance 600 280 Intake, Oral 600 280 Number 0 2 Bowel Movements Physical Exam General Appearance: Alert, Oriented X3, Cooperative, No Acute Distress Cardiovascular: Regular Rate, Normal S1, Normal S2 Lungs: Clear to Auscultation Abdomen: Normal Bowel Sounds, Soft, No Tenderness Extremities: No Edema, Normal Pulses Assessment/Plan Assessment: 76 y/o male with past medical history of dementia, autism, CVA (last one 15 yrs ago), HTN, CHF, afib not on AC due to fall risk, HLD, edema, GRED, depression, anxiety, was sent in by nursing facility for abnormal lab values and altered mental status. He is currently being managed in the general medical floor for the following issues: 1. Altered mental status, 2/2 UTI His mental condition is likely due to UTI, as his WBC was 19.2 with bandemia of 7 on 03/02/17, with UA showing WBC 25-50, rare bacteria, mod leukocyte esterase. His urine culture grew Klebsiella pneumoniae, sensitive to cephalosporins. He received 1 dose of IM CTX, and was on IV CTX until yesterday. His mentation has improved, and his vitals have remained stable. * Patient seems to be getting better, is more alert and verbal today. * For UTI, he has been switched to oral antibiotics Keflex from . Will stop tomorrow for a full 5 day course. * Avoid sedative/hypnotics/narcotics. * Thank you psych recs for AMS: Will con't Depakote, Sertraline. No longer requires sitter. * Valproic acid level: 85.1 (03/08) - will check with Psych if another level is required prior to discharge 2. Dehydration - Resolved BUN/Cr ratio high on admission. Dehydration due to AMS and poor oral intake. Patient is now on advanced diet. BUN/Cr ratio and physical exam are WNL. * Continue regular diet. 3. Malnutrition - Resolving His albumin is 2.8, suggestive of malnutrition although his BMI is 27.6, along the fact that his oral intake has been poor recently. * Nutrition consult already placed. * Patient continues to have a good appetite. Will continue to monitor until discharge. 4. H/o frequent falls He was admitted for fall injury last year in and the last fall was 6 months back. He has frequent falls per family members, which warranted him NOT to be on any anticoagulation for afib. -PT eval and treatment: He still requires assist of 1-2 and discharge to STR has been recommended. 5. Discharge pending * CM searching for STR near [place] where the family can be closer per family request. #Diet: Regular diet #DVT ppx: Heparin SQ given his renal condition #Code status: Full code Problem List: 1. Altered mental state 2. UTI (urinary tract infection) Pain Ratin Pain Location: none Pain Goal: Remain pain free Pain Plan: none Tomorrow's Labs & Rationales: none
--- NOTE | 2017-03-09 12:08 | PN- Att Addend ---
Attending MD Review Statement Attending Statement Attending MD Statement: examined this patient, discuss w/resident/PA/PLASTIC CUTTER, agreed w/resident/PA/PLASTIC CUTTER, reviewed EMR data (avail), discussed w/nursing Attending Assessment/Plan: Vital Signs Date Time Temp Pulse Resp B/P B/P Pulse O2 O2 Flow FiO2 Mean Ox Delivery Rate 03/09 0911 73 18 142/78 07 0630 98.7 73 18 142/78 94 Room Air 03/08 2155 98.4 78 20 140/80 95 Room Air 03/08 1451 98.5 74 20 150/88 95 infectious encephalopathy- sec to UTI- mental status improving according to nursing. cont on abx. on po keflex. Underlying demenita. DC to STR when bed available.
[2017-03-09 14:51] VITALS: BP 150/80
[2017-03-09 22:12] VITALS: BP 180/110
--- NOTE | 2017-03-09 22:43 | Event Note ---
Event Note Event Note: S: Notified of BP 180/110 B: Pt admitted for AMS 2/2 klebsiella UTI, dehydration, and malnutrition A/R: Patient was seen with resident. Pt states that he was doing well. He denied any headache or vision changes. He was not in acute distress and had no complaints. BP was rechecked multiple attempts on L arm. His BP 165/100. Review of his home medications revealed that he has not had any of his home lasix. We will restart his lasix 20mg and informed nursing to recheck his BP in 1 hour. 5.00. Pressure in 164/100. 6.25. Pressure 184/110. Will give AM antihypertensive early. AM to assess need for additonal antihypertensives.
[2017-03-10 01:39] VITALS: BP 164/100
[2017-03-10 06:46] VITALS: BP 184/110
--- NOTE | 2017-03-10 07:15 | PN- Housestaff ---
NIGHAT REYNA,YURI 03/10/17 0714: Subjective Follow-up For: AMS, Lethargy Subjective: I saw and examined the patient this AM. Pt was sitting in bed eating breakfast. Pt denied any complaints today. Denies chest pain, SOB, fever or chills. States he has a good appetite and is ready to leave. As per overnight team and nursing: pt had spike in bp: 180s/110s. Lasix and amlodipine restarted. Review of Systems Constitutional: Denies: no symptoms, see HPI, chills, fever. EENTM: Denies: blurred vision, visual changes. Cardiovascular: Denies: chest pain. Respiratory: Denies: cough, short of breath. Gastrointestinal: Denies: nausea, vomiting. Neurological/Psychological: Denies: headache. Objective Last 24 Hrs of Vital Signs/I&O Vital Signs Date Time Temp Pulse Resp B/P B/P Pulse O2 O2 Flow FiO2 Mean Ox Delivery Rate 03/10 1238 98.6 98 18 132/80 03/10 1035 132/80 03/10 0834 98 184/110 03/10 0646 98.6 98 18 184/110 95 Room Air 03/10 0626 98 184/110 / 0139 99 20 164/100 95 Room Air 03/09 2212 98.3 87 20 180/110 93 Room Air Intake & Output 03/10 1600 03/10 0800 03/10 0000 Intake Total 200 800 Output Total Balance 200 800 Intake, Oral 200 800 Number 3 Bowel Movements Physical Exam General Appearance: Alert, Cooperative, No Acute Distress Skin Temp/Moisture Exam: Warm/Dry HEENT: Atraumatic, PERRLA, Mucous Membr. moist/pink Cardiovascular: Regular Rate, Normal S1, Normal S2 Lungs: Clear to Auscultation Abdomen: Normal Bowel Sounds, Soft, No Tenderness Extremities: No Edema, Normal Pulses Vascular: Normal Pulses, Pulses Symmetrical Assessment/Plan Assessment: 76 y/o male with past medical history of dementia, autism, CVA (last one 15 yrs ago), HTN, CHF, afib not on AC due to fall risk, HLD, edema, GRED, depression, anxiety, was sent in by nursing facility for abnormal lab values and altered mental status. He is currently being managed in the general medical floor for the following issues: 1. Altered mental status, 2/2 UTI His mental condition is likely due to UTI, as his WBC was 19.2 with bandemia of 7 on 03/02/17, with UA showing WBC 25-50, rare bacteria, mod leukocyte esterase. His urine culture grew Klebsiella pneumoniae, sensitive to cephalosporins. He received 1 dose of IM CTX, and was on IV CTX until yesterday. His mentation has improved, and his vitals have remained stable. * Patient seems to be getting better, is more alert and verbal today. * For UTI, he has been switched to oral antibiotics Keflex from . Stopped today. Received a full 7 day course. * Avoid sedative/hypnotics/narcotics. * Thank you psych recs for AMS: Will con't Depakote, Sertraline. No longer requires sitter. * Valproic acid level: 85.1 (03/08) 2. Dehydration - Resolved BUN/Cr ratio high on admission. Dehydration due to AMS and poor oral intake. Patient is now on advanced diet. BUN/Cr ratio and physical exam are WNL. * Continue regular diet. 3. Malnutrition - Resolving His albumin is 2.8, suggestive of malnutrition although his BMI is 27.6, along the fact that his oral intake has been poor recently. * Nutrition consult already placed. * Patient continues to have a good appetite. Will continue to monitor until discharge. 4. H/o frequent falls He was admitted for fall injury last year in and the last fall was 6 months back. He has frequent falls per family members, which warranted him NOT to be on any anticoagulation for afib. -PT eval and treatment: He still requires assist of 1-2 and discharge to STR has been recommended. 5. Discharge pending * searching for STR near [place] where the family can be closer per family request. #Diet: Regular diet #DVT ppx: Heparin SQ given his renal condition #Code status: Full code Problem List: 1. Altered mental status, unspecified 2. Malnutrition 3. UTI (urinary tract infection) Pain Ratin Pain Location: none Pain Goal: Remain pain free Pain Plan: none Tomorrow's Labs & Rationales: none CAIT TUCKER MD 03/10/17 1104: Attending MD Review Statement Attending Statement Attending MD Statement: examined this patient, discuss w/resident/PA/CHEF INSTRUCTOR, agreed w/resident/PA/CHEF INSTRUCTOR, reviewed EMR data (avail), discussed with nursing, discussed with case mgmt, reviewed images, amended to note Attending Assessment/Plan: Patient seen and examined, he offers no complaints. He denies any aches or pains. Overall his mental state has improved compared to what he came in with. Patient is a 76-year-old male who was originally admitted with the infectious encephalopathy secondary to UTI leading to altered mental dictation. Has been treated for UTI for total of seven-day course of antibiotics and mental state has improved. Blood pressure then became a problem and patient became hypertensive. Antihypertensives were started. Blood pressure later in the morning has improved. Patient has a bed available at rehabilitation and he would be discharged to rehabilitation today.
--- NOTE | 2017-03-10 08:55 | RADIOLOGY REPORT ---
EXAMINATION: XR PORTABLE CHEST CLINICAL INFORMATION: Shortness of breath. Rule out pneumothorax. COMPARISON: 03/03/2017 TECHNIQUE: Portable frontal view of the chest was obtained. FINDINGS: Rotated positioning. The cardiac mediastinal silhouette is enlarged, accentuated by rotated positioning, decreased lung volumes. There are streaky opacity in the left lower lung, as well as airspace opacity in the retrocardiac region in the left base. This may reflect atelectasis or consolidation. No focal opacities right lung. No tori effusion, pulmonary edema. No pneumothorax is seen. IMPRESSION: 1. Low lung volumes. Left basilar opacities from atelectasis or consolidation. 2. Mild enlargement of the cardiac silhouette, similar to previous.
[2017-03-10] MEDS ORDERED: NORVASC10 M1 PO (09:51)
[2017-03-10 10:35] VITALS: BP 132/80
[2017-03-10 12:38] VITALS: BP 132/80
[2017-03-10 13:20] LABS: ABSOLUTE BASOPHIL COUNT 0 /CUMM (0.0-0.2); ABSOLUTE EOSINOPHIL COUNT 0.1 /CUMM (0.0-0.7); ABSOLUTE LYMPH COUNT 1.3 /CUMM (1.2-3.4); ABSOLUTE MONOCYTE COUNT 1.7 /CUMM (0.10-0.60); EOSINOPHIL % 0.9 % (0-5)
[2017-03-10 13:30] LABS: ABSOLUTE GRANULOCYTE CT 9.5 /CUMM (1.4-6.5); BASOPHIL % 0.3 % (0.0-2.0); GRANULOCYTE % 74.8 % (42.2-75.2); MEAN CORPUSCULAR HGB 30.7 PG (27.0-31.0); MEAN CORPUSCULAR HGB CONC 33.8 G/DL (33.0-37.0); MEAN CORPUSCULAR VOLUME 90.9 FL (80.0-94.0); MEAN PLATELET VOLUME 7.1 FL (7.4-10.4); RBC DISTRIBUTION WIDTH 13.8 % (11.5-14.5); RED BLOOD CELL CT 5.37 /CUMM (4.70-6.10); WHITE BLOOD CELL COUNT 12.7 /CUMM (4.8-10.8)
[2017-03-10 13:31] LABS: HEMATOCRIT 48.8 % (42-52)
[2017-03-10 13:50] LABS: PLATELET COUNT 191 /CUMM (130-400)
== END 2017-03-10 14:10 | DRG 689 ==
LOC: ERH 11:41 → 2NA 14:23 → ERHI 14:23 → 2NA 14:23 → ENRESERV 15:54 → ENTRNSPT 17:25 → 2NA 18:10 → ENPENDDIS 03-10 12:35 → 2NA 03-10 14:10
PROVIDERS: Physician Assistant; Student in an Organized Health Care Education/Training Program; ADMIT Internal Medicine
DX: N39.0 Urinary tract infection, site not specified (principal); G92 Toxic encephalopathy; E46 Unspecified protein-calorie malnutrition; R06.89 Other abnormalities of breathing; F03.90 Unspecified dementia, unspecified severity, without behavioral disturbance, psychotic disturbance, mood disturbance, and anxiety; I11.0 Hypertensive heart disease with heart failure; I50.9 Heart failure, unspecified; I48.2 Chronic atrial fibrillation; F84.0 Autistic disorder; F32.9 Major depressive disorder, single episode, unspecified; Z68.27 Body mass index [BMI] 27.0-27.9, adult; E86.0 Dehydration; B96.1 Klebsiella pneumoniae [K. pneumoniae] as the cause of diseases classified elsewhere; Z91.81 History of falling; R26.89 Other abnormalities of gait and mobility; Z86.73 Personal history of transient ischemic attack (TIA), and cerebral infarction without residual deficits; R32 Unspecified urinary incontinence; R15.9 Full incontinence of feces; H91.90 Unspecified hearing loss, unspecified ear; F42.9 Obsessive-compulsive disorder, unspecified; I44.4 Left anterior fascicular block; K21.9 Gastro-esophageal reflux disease without esophagitis; E78.5 Hyperlipidemia, unspecified; F41.9 Anxiety disorder, unspecified
CPT/HCPCS: 2NASP; 36415; 81001; 82436; 87040; 87086; 93005; 93010; 93306; 96361; 96374; 96375; 96376; 97110-GO; 97116-GO; 97161-GP; 97530-GO; J0131; J0696; J1644; J7042; J7060; S5012